=== PATIENT | male | born 1985 | race Hispanic/Latino ===

== ENCOUNTER 2019-03-14 13:30 | Inpatient (IN) | payer BC ==
[2019-03-14 16:06] LABS: Hemoglobin 6.7 g/dL (14.0-18.0); Mean Corpuscular HGB CONC 35.6 g/dL (32.0-36.0); Mean Corpuscular Hemoglobin 31.7 pg (27.0-31.0); Mean Corpuscular Volume 89.1 fL (78.0-98.0); Platelet Count 161 thou/uL (130-400); RBC Distribution Width 18.8 % (11.5-14.5); White Blood Cell (WBC) Count 4.7 thou/uL (4.8-10.8)
[2019-03-14 16:23] LABS: ALT (SGPT) 29 U/L (8-55); AST (SGOT) 59 U/L (5-34); Albumin 4.8 g/dL (3.5-5.0); Alkaline Phosphatase 63 U/L (40-150); Anion Gap 13 mmol/L (10-20); BUN (Urea Nitrogen) 12 mg/dL (8.9-20.6); Bilirubin, Total 2.5 mg/dL (0.2-1.2); Calc. Creatinine Clearance 0 mL/min (70-130); Calcium 9.8 mg/dL (7.8-10.44); Carbon Dioxide 27 mmol/L (22-29); Chloride 103 mmol/L (98-107); Estimated GFR-MDRD Greater than 90; Globulin 3.2 g/dL (2.4-3.5); Glucose 87 mg/dL (70-105); Potassium 3.8 mmol/L (3.5-5.1); Sodium 139 mmol/L (136-145)
[2019-03-14 16:33] LABS: Anisocytosis SLIGHT = 6-15 cells (100X) (0-5/hpf); Band 9 % (5-11); Elliptocytes SLIGHT = 2-5 cells (100X) (0-1/hpf); Eosinophils 5 % (0-10); Lymphocytes 13 % (21-51); MDiff Complete? YES; Monocytes 4 % (0-10); Neutrophil 69 % (42-75); Nucleated RBC 5 % (0); Platelet Morphology Comment Appears Adequate; Polychromasia MODERATE = 3-4 cells (100X) (0-2/hpf); Tear Drops SLIGHT = 2-5 cells (100X) (0-1/hpf)
[2019-03-14] MEDS ORDERED: Ondansetron PF 4 MG/2 ML Vial IVP PRN (20:58)
[2019-03-14] MEDS ORDERED: Acetaminophen 650 MG Suppository PR PRN (20:58)
[2019-03-14] MEDS ORDERED: Acetaminophen 325 MG TAB PO PRN (20:58)
[2019-03-14] MEDS ORDERED: Ondansetron ODT 4 MG TAB PO PRN (20:58)
[2019-03-14] MEDS ORDERED: Sodium Chloride 0.9% (PF) 10 ML VIAL FS PRN (21:17)
[2019-03-14 21:34] LABS: Hemoglobin 5.7 g/dL (14.0-18.0); Platelet Count 119 thou/uL (130-400)
[2019-03-14 21:37] LABS: INR-International Normal Ratio 1.1; PTT 27.7 SEC (22.9-36.1)
[2019-03-14 21:54] LABS: Bilirubin, Direct 0.8 mg/dL (0.1-0.3)
[2019-03-14] MEDS: Sodium Chloride 0.9% 1,000 ML IV SCH (21:54)
--- NOTE | 2019-03-15 | ULT ---
RIGHT UPPER QUADRANT ULTRASOUND CLINICAL HISTORY: Elevated bilirubin anemia. COMPARISON: None FINDINGS: Liver:There is diffuse fatty infiltration of the liver Bile ducts: No intrahepatic or extrahepatic biliary dilation.; common bile duct: 0.24cm. Gallbladder: Normal appearing. Macias's sign:None Main portal vein:Patent with hepatopedal flow. Pancreas: Visualized pancreas appears normal. Right kidney: No pelvicalyceal dilatation. Right kidney measures 12.1 x 4.7 cm. Additional findings: None. IMPRESSION: Mild fatty liver.
[2019-03-15 00:35] LABS: Hemoglobin 5.8 g/dL (14.0-18.0)
[2019-03-15 00:38] LABS: D-Dimer Test 1.16 *mcg/mL (0.27-0.43)
[2019-03-15 05:23] LABS: Hemoglobin 5.5 g/dL (14.0-18.0); Mean Corpuscular HGB CONC 35.1 g/dL (32.0-36.0); Mean Corpuscular Hemoglobin 31.3 pg (27.0-31.0); Mean Corpuscular Volume 89.2 fL (78.0-98.0); Mean Platelet Volume 6.7 fL (7.4-10.4); Platelet Count 116 thou/uL (130-400); Red Blood Cell (RBC) Count 1.75 mill/uL (4.70-6.10)
--- NOTE | 2019-03-15 05:23 | HP ---
This is DAVID Griffin dictating a report for Venkata Wallace MD. PRIMARY CARE PHYSICIAN: Dr. Judith Ansari. CHIEF COMPLAINT: Shortness of breath and lightheadedness. HISTORY OF PRESENT ILLNESS: Mr. King is a pleasant 33-year-old gentleman with no past medical history, who states he was doing well until Tuesday when he began feeling generally unwell and lightheaded. He started to note that he was fatigued and became increasingly short of breath. He contacted his primary care physician who recommended laboratory studies to be done earlier today. Due to results demonstrating a low hemoglobin of 6.7, he was instructed to present to the emergency department. The patient denies noting any bright red blood in the stool or melena. He denies having any abdominal pain or cramping, but does report mild left lateral chest wall discomfort with certain movements and is unsure when that started. The patient states it is tolerable. He reports being under lot of stress a few days ago at work. Denies experiencing any chest pain, but has been experiencing palpitations. He denies any hematuria or dysuria. He did notice darkening of his urine several days ago, which he attributed to a multivitamin, the urine improved once he discontinued that. His boyfriend states he appears to have lost some weight. However, the patient states he checks his weight frequently and though, he feels his abdomen has reduced in girth and his weight is actually stable. Denies having any other complaints. PAST MEDICAL HISTORY: None. PAST SURGICAL HISTORY: None. SOCIAL HISTORY: The patient drinks alcohol socially. Denies any drug use or tobacco use. ALLERGIES: NO KNOWN DRUG ALLERGIES. CURRENT MEDICATIONS: None. PHYSICAL EXAMINATION: GENERAL: The patient appears well developed, well nourished, in no acute distress. VITAL SIGNS: Temperature 98.8, pulse is 101, respirations 18, blood pressure 144/87, O2 saturation 99% on room air. HEENT: Normocephalic, atraumatic. Pupils are equal, round, reactive to light. Sclerae are notable for slight icterus. Oropharynx is clear. NECK: Supple. Full range of motion. No lymphadenopathy. LUNGS: Clear to auscultation bilaterally without any wheezing, rales, or rhonchi. CARDIAC: Regular rate and rhythm. ABDOMEN: Soft, nontender, nondistended, normoactive bowel sounds present. No guarding or rigidity. No renal angle tenderness. EXTREMITIES: Without any lower leg swelling or edema. NEUROLOGIC: Alert and oriented x3. SKIN: Without rash or notable jaundice. LABORATORY DATA: Full blood count notable for white cell count of 4.7, hemoglobin 6.7, hematocrit 18.7, MCV 89.1, platelets 161, neutrophil count 69. Sodium 139, potassium 3.8, BUN 12, creatinine 0.74, GFR greater than 90. Total bilirubin elevated at 2.5. AST 69, ALT 29, alkaline phosphatase 63. Lipase normal at 19. Total protein of 8 and albumin of 4.8. IMAGING DATA: None. IMPRESSION AND PLAN: Mr. King is a pleasant 33-year-old, who has been referred for management of the followin. Symptomatic anemia with shortness of breath . The patient is slightly tachycardic. In the emergency department, he has received IV hydration. Orders were placed for transfusion with 2 units of packed red blood cells. The patient denies ever undergoing any transfusion, however, he was noted to have . We will continue IV fluids and monitor blood pressure. We will check orthostatic blood pressures given the fact that he is feeling dizzy. We will monitor H and H. Hemoccult was negative as the patient has no source for possible bleed. Consult has been placed with Dr. Mcmillan given concern for hemolytic anemia. We will also obtain a baseline chest x-ray. 2. Elevated LFTs. The patient denies any underlying liver disease, however it appears he has undergone hepatitis workup in the past which is negative. Bilirubin is elevated at 2.8. I will add on a direct bilirubin as well as coagulation studies. I have requested an abdominal ultrasound. 3. GI prophylaxis. We will start the patient on prophylactic Protonix 40 mg daily. 4. Deep vein thrombosis prophylaxis with mechanical SCDs. 5. Code status, full. His surrogate decision maker is his boyfriend, Sarah Quintero, and his cousin, Nohelia Hook. The patient's case was discussed with Dr. Wallace who agrees with the plan of care as described above. Job ID: [id number]
[2019-03-15 05:34] LABS: Anion Gap 13 mmol/L (10-20); BUN (Urea Nitrogen) 11 mg/dL (8.9-20.6); Calc. Creatinine Clearance 198 mL/min (70-130); Calcium 8.5 mg/dL (7.8-10.44); Carbon Dioxide 23 mmol/L (22-29); Chloride 106 mmol/L (98-107); Estimated GFR-MDRD Greater than 90; Glucose 94 mg/dL (70-105); Potassium 3.9 mmol/L (3.5-5.1); Sodium 138 mmol/L (136-145)
[2019-03-15 05:40] LABS: ALT (SGPT) 23 U/L (8-55); AST (SGOT) 51 U/L (5-34); Albumin 4.2 g/dL (3.5-5.0); Alkaline Phosphatase 53 U/L (40-150); Bilirubin, Direct 0.8 mg/dL (0.1-0.3); Protein, Total 6.8 g/dL (6.0-8.3)
[2019-03-15 05:48] LABS: #Eosinphils 0.1 thou/uL (0.0-0.7); #Lymphocytes 0.9 thou/uL (1.20-3.40); #Monocytes 0.2 thou/uL (0.11-0.59); #Neutrophils 2.8 thou/uL (1.40-6.50); %Basophils 0.5 % (0.0-1.0); %Eosinophils 3.1 % (0.0-10.0); %Lymphocytes 21.3 % (21.0-51.0); %Neutrophils 69.1 % (42.0-75.0); Anisocytosis SLIGHT = 6-15 cells (100X) (0-5/hpf); MDiff Complete? YES; Platelet Morphology Comment Appears Decreased; Polychromasia MARKED = >4 cells (100X) (0-2/hpf)
[2019-03-15] MEDS: Sodium Chloride 0.9% 1,000 ML IV SCH ×2 (07:19→17:24)
--- NOTE | 2019-03-15 07:57 | RAD ---
EXAM: Two views chest PROVIDED CLINICAL HISTORY: Shortness of breath COMPARISON: None FINDINGS: Cardiac silhouette and pulmonary vasculature are within normal limits. The lungs are clear. The osse ous structures have a normal appearance. IMPRESSION: No acute cardiopulmonary process.
[2019-03-15] MEDS: Pantoprazole 40 MG VIAL IVP SCH (08:20)
[2019-03-15 10:52] LABS: Hemoglobin 6.1 g/dL (14.0-18.0); Mean Corpuscular HGB CONC 35.6 g/dL (32.0-36.0); Mean Corpuscular Hemoglobin 31.8 pg (27.0-31.0); Mean Corpuscular Volume 89.3 fL (78.0-98.0); Mean Platelet Volume 6.7 fL (7.4-10.4); Platelet Count 141 thou/uL (130-400); RBC Distribution Width 18.8 % (11.5-14.5); Red Blood Cell (RBC) Count 1.91 mill/uL (4.70-6.10); Reticulocyte Count 17.3 % (0.5-1.5); White Blood Cell (WBC) Count 4.1 thou/uL (4.8-10.8)
[2019-03-15] MEDS ORDERED: methylPREDNISolone Sod Succ 40 MG VIAL IVP SCH (11:00)
[2019-03-15 11:04] LABS: Iron 167 ug/dL (65-175); Iron Binding Capacity, Total 276 mcg/dL (261-462)
[2019-03-15 11:38] LABS: Anisocytosis MODERATE=16-30 cells (100X) (0-5/hpf); Band 7 % (5-11); Eosinophils 1 % (0-10); Hypochromia SLIGHT = 6-15 cells (100X) (0-5/hpf); Lymphocytes 17 % (21-51); MDiff Complete? YES; Metamyelocyte 2 % (0-0); Monocytes 4 % (0-10); Neutrophil 68 % (42-75); Nucleated RBC 5 % (0); Ovalocytes SLIGHT = 2-5 cells (100X) (0-1/hpf); Polychromasia MARKED = >4 cells (100X) (0-2/hpf)
[2019-03-15 11:38] LABS: Folate (Folic Acid) 14.9 ng/mL (7.0-31.4)
--- NOTE | 2019-03-15 15:55 | CON ---
DATE OF CONSULTATION: REASON FOR CONSULT: Severe anemia. HISTORY OF PRESENT ILLNESS: Mr. Christine Booker is a pleasant 33-year-old gentleman with no significant medical history, who states for the past week, he has had increasing fatigue, dizziness, and palpitations. He called his primary care on Tuesday to schedule an appointment. She scheduled labs prior to the visit and found a hemoglobin of 5.8. He was sent to the emergency room yesterday evening. He denies any bleeding. In the emergency room, his white count was 4.7, his hemoglobin was 6.7, and his platelet count was 161,000. He did have 5 nucleated reds. Two orders of packed RBCs were ordered. On the blood test, he had a positive direct antiglobulin screen and was unable to receive any blood. He underwent an abdominal ultrasound, which showed no hepatosplenomegaly. The patient denies any new medications. He took an [id number] multivitamin for approximately 1 month and stopped about a week ago. Denies any family history of blood disorders. No illicit drug use. No recent antibiotics. PAST MEDICAL HISTORY: None. PAST SURGICAL HISTORY: None. ALLERGIES: NO KNOWN DRUG ALLERGIES. HOME MEDICATIONS: None. FAMILY HISTORY: No hematological disorders. SOCIAL HISTORY: Single, lives with a significant other. No illicit drug use or tobacco. Social drinker. REVIEW OF SYSTEMS: CONSTITUTIONAL: No fever, chills, night sweats, or recent weight loss. EYES: No blurred or double vision. ENT: No pain, hoarseness, sore throat, or dysphagia. CV: No chest pain. Positive for palpitations. RESPIRATORY: Positive for shortness of breath and dyspnea on exertion. GI: No nausea, vomiting, diarrhea, constipation, or abdominal pain. : No dysuria or hematuria. MUSCULOSKELETAL: No joint or back pain. SKIN: No rash or pruritus. HEMATOLOGICAL: No bleeding, bruising, or clotting. NEUROLOGICAL: No weakness, headache, numbness, tingling, or seizure disorder. PSYCH: No anxiety or depression. PHYSICAL EXAMINATION: VITAL SIGNS: Temperature is 98.5, pulse is 88, respiratory rate is 16, BP is 124/74. He is 100% on room air. GENERAL: This is a well-developed, well-nourished male, in no acute distress. HEENT: Normocephalic and atraumatic. Pupils are equal and reactive to light. Sclerae are icteric. CV: Regular rate and rhythm. LUNGS: Clear. ABDOMEN: Soft and nontender. Bowel sounds are positive. EXTREMITIES: No clubbing, cyanosis, or edema. SKIN: Positive for jaundice. HEMATOLOGICAL: No petechiae or purpura. NEUROLOGICAL: Nonfocal. PSYCH: He is alert and oriented and appropriate. PERTINENT LABS AND X-RAYS: Current WBCs are 4.1, hemoglobin is 6.1, hematocrit is 17.0, platelet count is 141,000. He has 69% neutrophils, 21% lymphocytes. He has a retic count of 17.3. His smear is pending. PT is 14, INR is 1.1, PTT is 27.7, fibrinogen is 370, D-dimer is 1.16. Sodium is 138, potassium is 3.9, chloride is 106, CO2 is 23, BUN is 11, creatinine is 0.7, calcium is 8.5, bilirubin is 3.0, direct bilirubin is 0.8, AST is 51, ALT is 23, alkaline phosphatase is 53. Serum total protein is 6.8, albumin is 4.2, globulin is 3.2, lipase is 19. Abdominal ultrasound and chest x-ray shows no acute findings. ASSESSMENT: Severe symptomatic anemia. DISCUSSION: Case was discussed with Dr. Raymond. The patient appears to have a hemolytic anemia, trigger unclear at this time. Peripheral smear is currently pending, looking for schistocytes and spherocytes. It is unlikely he has TTP given his normal platelet count this morning. His LDH and haptoglobin are currently pending. Plan is to start steroids at 1 mg/kg, and we will transfuse once his blood is available. The patient and family were updated on the plan and agrees. Thank you for the consult. We will follow him closely. Job ID: [id number]
--- NOTE | 2019-03-15 18:08 | PDOC.HOSPP ---
- Subjective Encounter Date: 03/15/19 Encounter Time: 18:06 Subjective: Patient lying in bed, he denies events over night. His Hgb improved a little to 6.1. He states he gets out of breath walking to the bathroom and feels weak. He denies chest pain or palpitations. He continues on prednisone for acute autoimmune hemolytic anemia. - Objective Vital Signs & Weight: Vital Signs (12 hours) Temp Pulse Resp BP BP BP BP 03/15/19 16:07 98.2 F 109 H 16 133/76 03/15/19 11:58 98.4 F 99 18 116/69 119/69 113/62 03/15/19 08:17 98.5 F 88 16 124/79 Pulse Ox 03/15/19 16:07 98 03/15/19 11:58 100 03/15/19 08:17 100 Weight Admit Weight 203 lb 11.2 oz Weight 203 lb 11.2 oz I&O: 03/14/19 03/15/19 03/16/19 06:59 06:59 06:59 Intake Total 1919 Balance 1919 Result Diagrams: 03/15/19 10:26 03/15/19 04:58 Radiology Reviewed by me: Yes ROS - Review of Systems Constitutional: reports: weakness, malaise. denies: fever, chills Eyes: denies: vision change ENT: denies: nose congestion, throat pain, throat swelling Respiratory: reports: SOB with excertion. denies: cough, wheezing Cardiovascular: denies: chest pain, palpitations Gastrointestinal: denies: nausea, vomitting, abdominal pain Musculoskeletal: denies: neck pain, back pain, leg pain Skin: denies: rash, lesions Neurological: reports: weakness. denies: numbness, change in speech, confusion All other systems reviewed; all pertinent +/- noted in HPI/Subj - Medication Medications: Active Medications Generic Name Dose Route Start Last Admin Trade Name Freq PRN Reason Stop Dose Admin Sodium Chloride 1,000 mls @ 100 mls/hr 03/14/19 21:15 03/15/19 17:24 Normal Saline 0.9% IV 1,000 mls .Q10H ABELINO Administration Pantoprazole Sodium 40 mg 03/15/19 09:00 03/15/19 08:20 Protonix IVP 40 mg DAILY ABELINO Administration Sodium Chloride 10 ml 03/15/19 09:00 03/15/19 08:20 Flush - Normal Saline IVF 10 ml Q12HR ABELINO Administration - Exam NAD, awake alert Eye: PERRL ENT: normocephalic atraumatic, no oropharyngeal lesions, moist mucosa Neck: supple, no JVD, no carotid bruit Heart: RRR, no murmur Respiratory: CTAB, no wheezes, normal chest expansion Gastrointestinal: soft, non-tender, normal bowel sounds Extremities: no cyanosis, no edema Skin: normal turgor, no rashes Neurological: CN's grossly intact, no focal deficits Musculoskeletal: normal strength, no muscle wasting Psychiatric: normal affect, A&O x 3 Hosp A/P (1) Autoimmune hemolytic anemia Code(s): D59.1 - OTHER AUTOIMMUNE HEMOLYTIC ANEMIAS Status: Acute (2) Symptomatic anemia Code(s): D64.9 - ANEMIA, UNSPECIFIED Status: Acute (3) Elevated LFTs Code(s): R94.5 - ABNORMAL RESULTS OF LIVER FUNCTION STUDIES Status: Acute - Plan plan discussed w/ family Continue steroids Patient with autoimmune hemolytic anemia Trend H&H, recheck CBC in am Heme/onc following GI consulted for elevated LFT
[2019-03-15 19:29] LABS: HBCM Index 0.14 S/CO (0-0.79); HBSAg Index 0.19 S/CO (0-0.99); HIV (1/2) Antibody/Antigen Non-Reactive (NonReactive); Hep A IgM AB Non-Reactive (NonReactive); Hep A IgM S/CO 0.17 S/CO (0-0.79); Hep B Surf Ag Non-Reactive S/CO (NonReactive); Hep C IgG Ab Non-Reactive (NonReactive); Hep C Index 0.11 S/CO (0-0.79); Hepatitis B Core IgM Abs Non-Reactive (NonReactive)
[2019-03-15] MEDS: predniSONE 50 MG TAB PO SCH (21:50)
--- NOTE | 2019-03-16 01:33 | CON ---
DATE OF CONSULTATION: REASON FOR CONSULTATION: Anemia, mild elevation of LFTs. HISTORY OF PRESENT ILLNESS: Mr. King is a 33-year-old gentleman. He reports that he went to his doctor's office on Tuesday as he was feeling very weak and lightheaded. He was found to have a hemoglobin between 5 and 6. His PCP called him and told him he needed to get to the emergency room. Here, he was found to have mildly elevated liver enzymes. Again, he has been evaluated by Hematology, who thinks he is having hemolytic anemia. In talking with the patient, he denies any prior histories of anemia. He denies any signs of overt blood loss with melena, hematochezia, or hematemesis. His appetite is good. In fact, he wants to eat now. He has been kept on liquids so far since admission. He has had no weight loss. He has had no fever or chills. He denies any sick contacts. He denies taking any supplements other than a multivitamin and occasional baby aspirin and occasional ibuprofen, probably less than 10 a month. He drinks alcohol about four times per month. He does not use drugs. He does not take any supplements. He works in the kitchen at [employer]. He denies any sick contacts there. PAST MEDICAL HISTORY: He has been healthy with no chronic medical disease. 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 He can have chronic features of arthritis but unaware of that. PAST SURGICAL HISTORY: None. ALLERGIES: NONE. MEDICATIONS: At home, only the aspirin occasionally. He took one iron pill two days ago, when he was told he was anemic and he had been taking occasional NSAID but nothing regular. FAMILY HISTORY: No hematology disorders, colon cancer, or liver disease. SOCIAL HISTORY: He lives with significant other. No illicit drug use. No tobacco use. REVIEW OF SYSTEMS: CONSTITUTIONAL: Negative for fever, chills, rashes, myalgias, arthralgias, or night sweats. EYES: No double vision or blurry vision noted. No icterus or jaundice was noted. HENT: No sore throat or hoarseness or adenopathy in the neck or thyroid masses. CVS: He has had dyspnea on exertion and shortness of breath on exertion but no chest pain. No orthopnea. RESPIRATORY: Negative for cough. GI: As per HPI. NEUROLOGIC: Negative. SKIN: Negative. PRESENT MEDICATIONS: 1. Tylenol. 2. Zofran. 3. Protonix. 4. Prednisone. 5. Normal saline. PHYSICAL EXAMINATION: VITAL SIGNS: Temperature is 98.2, pulse 91 to 109, and blood pressure 133/76. GENERAL: He is resting comfortably in bed. HEENT: He is not grossly icteric. His oropharynx is without lesions. NECK: Supple without any adenopathy. There is no thyromegaly. LUNGS: Clear. HEART: Regular rate and rhythm without clicks, rubs, or murmurs. ABDOMEN: Soft and nontender with no palpable hepatosplenomegaly. EXTREMITIES: No clubbing, cyanosis, or edema. SKIN: Without stigmata of chronic liver disease such as spider angioma. NEUROLOGIC: He is alert and oriented to person, place, and time. LYMPHATICS: He has no evidence of adenopathy in the axillary or inguinal areas or supraclavicular adenopathy. LABORATORY DATA: White count is 4.1, hemoglobin 6.1, platelet count 141 as low as 119, his MCV is 89, 69 segs, 9 bands, 13 lymphocytes, nucleated red blood cells 5, polychromia moderate, retic 17%. PT and INR are 14 and 1.1. Comp met profile is normal except for bilirubin of 2.5 on admission, it is 3 today with direct of 0.8. AST is 51, ALT is 23, alkaline phosphatase 53, LDH is 889, iron is 167, TIBC is 276, saturation 60%, ferritin 774, B12 of 351, and folate 14. Acute hepatitis panel negative. HIV negative. Labs from 09/29/2017, he had a normal CBC, had normal liver function tests at that time as well. IMAGING STUDIES: He has had a chest x-ray, was normal. Ultrasound, mild fatty liver. ASSESSMENT: 1. This is a 33-year-old, who has been admitted with anemia, which is new from last year and he has some mild indirect hyperbilirubinemia and mild AST elevation. He has no signs of GI blood loss or GI symptoms. He has no evidence of iron deficiency. Hematology has seen him and with his elevated LDH and peripheral smear, I think he has some myolysis and had been started on steroids. At this time, I see no signs of GI blood loss. 2. Elevated liver enzymes. He does have a mild fatty liver on ultrasound. There are no signs of cirrhosis. He has a mild indirect hyperbilirubinemia and a mild AST elevation, both of these could be related to hemolysis. It is always possible that he has a component of Gilbert syndrome. I do not see any specific severe underlying liver disease. I would observe for now. We will follow from a distance. Job ID: [id number]
[2019-03-16] MEDS: Sodium Chloride 0.9% 1,000 ML IV SCH ×2 (06:41→16:10)
[2019-03-16 07:18] LABS: Hemoglobin 5.9 g/dL (14.0-18.0); Mean Corpuscular HGB CONC 35.9 g/dL (32.0-36.0); Mean Corpuscular Hemoglobin 32.4 pg (27.0-31.0); Mean Corpuscular Volume 90.3 fL (78.0-98.0); Mean Platelet Volume 6.9 fL (7.4-10.4); Platelet Count 160 thou/uL (130-400); RBC Distribution Width 19.8 % (11.5-14.5); Red Blood Cell (RBC) Count 1.82 mill/uL (4.70-6.10); White Blood Cell (WBC) Count 8.4 thou/uL (4.8-10.8)
[2019-03-16 08:00] LABS: #Basophils 0.1 thou/uL (0.0-0.2); #Monocytes 0.2 thou/uL (0.11-0.59); #Neutrophils 7.1 thou/uL (1.40-6.50); %Basophils 1.6 % (0.0-1.0); %Eosinophils 0.3 % (0.0-10.0); %Lymphocytes 11.8 % (21.0-51.0); %Monocytes 1.7 % (0.0-10.0); %Neutrophils 84.5 % (42.0-75.0); Anisocytosis MODERATE=16-30 cells (100X) (0-5/hpf); MDiff Complete? YES; Platelet Morphology Comment Appears Adequate; Polychromasia MARKED = >4 cells (100X) (0-2/hpf); Spherocytes SLIGHT = 1-5 cells (100X) (None Seen)
[2019-03-16] MEDS: Pantoprazole 40 MG VIAL IVP SCH (08:25)
[2019-03-16] MEDS: predniSONE 50 MG TAB PO SCH ×2 (08:25→21:15)
--- NOTE | 2019-03-16 08:51 | PDOC.MOPN ---
Interval History: Pt feeling better today since starting steroids yesterday. His appetite is good and energy is slightly better. - Vital Signs Vital Signs: Vital Signs (12 hours) Temp Pulse Resp BP Pulse Ox 03/16/19 08:22 98.4 F 100 18 137/69 100 03/16/19 03:57 98.4 F 95 17 113/61 98 Weight Admit Weight 203 lb 11.2 oz Weight 203 lb 11.2 oz - Physical Exam General: Alert, Oriented x3, Cooperative, No acute distress HEENT: Atraumatic, EOMI Lungs: Normal air movement Cardiovascular: Regular rate Abdomen: Soft Skin: No rashes Neurological: Cranial nerves 3-12 NL Psych/Mental Status: Mental status NL, Mood NL - Labs Result Diagrams: 03/16/19 06:58 03/15/19 04:58 Lab results: Laboratory Results - last 24 hr 03/16/19 06:58: WBC 8.4, RBC 1.82 L, Hgb 5.9 L*, Hct 16.5 L, MCV 90.3, MCH 32.4 H, MCHC 35.9, RDW 19.8 H, Plt Count 160, MPV 6.9 L, Neutrophils % 84.5 H, Neutrophils % (Manual) Not Reportable, Lymphocytes % 11.8 L, Monocytes % 1.7, Eosinophils % 0.3, Basophils % 1.6 H, Neutrophils # 7.1 H, Lymphocytes # 1.0 L, Monocytes # 0.2, Eosinophils # 0.0, Basophils # 0.1, Plt Morphology Comment Appears Adequate, Polychromasia MARKED = >4 cells H, Anisocytosis MODERATE=16- 30 cells H, Spherocytes SLIGHT = 1-5 cells 03/15/19 18:44: Hepatitis A IgM Ab Non-Reactive, Hep Bs Antigen Non-Reactive, Hep B Core IgM Ab Non-Reactive, Hepatitis C Antibody Non-Reactive, HIV 1&2 Antigen & Ab Non-Reactive 03/15/19 10:26: WBC 4.1 L, RBC 1.91 L, Hgb 6.1 L, Hct 17.0 L, MCV 89.3, MCH 31.8 H, MCHC 35.6, RDW 18.8 H, Plt Count 141, MPV 6.7 L, Neutrophils % (Manual) 68, Band Neuts % (Manual) 7, Lymphocytes % (Manual) 17 L, Monocytes % (Manual) 4 , Eosinophils % (Manual) 1, Basophils % (Manual) 1, Metamyelocytes % (Man) 2 H, Nucleated RBCs # (Man) 5 H, Hypochromia SLIGHT = 6-15 cells, Polychromasia MARKED = >4 cells H, Anisocytosis MODERATE=16-30 cells H, Ovalocytes SLIGHT = 2- 5 cells, Smear Path Review 03/15/19 10:26: Retic Count 17.3 H, Immature Retic Fraction 0.757 H 03/15/19 10:26: Iron 167, TIBC 276, % Saturation 60 H 03/15/19 10:25: Lactate Dehydrogenase 889 H 03/15/19 10:25: Ferritin 774.14 H 03/15/19 10:25: Vitamin B12 531, Folate 14.90 03/14/19 16:23: Blood Type A POSITIVE, Antibody Screen POSITIVE H, Antibody Identification Warm Auto, Direct Antiglob Test POSITIVE H, Crossmatch See Detail A/P - Problem (1) Autoimmune hemolytic anemia Current Visit: Yes Code(s): D59.1 - OTHER AUTOIMMUNE HEMOLYTIC ANEMIAS Status: Acute - Plan Plan: Warm AIHA continue Prednisone 1 mg/kg daily and Protonix avoid blood transfusion at this time as pt is feeling better and his antibodies would likely destroy any blood given to him. Would give to him if his Hb drops and he becomes more symptomatic Will be ok for discharge once Hb > 7.[address]-C/A/P to evaluate for any evidence of lymphoma as no other cause has been found f/u flow cytometry
--- NOTE | 2019-03-16 17:14 | PDOC.HOSPP ---
- Subjective Encounter Date: 03/16/19 Encounter Time: 17:11 Subjective: Patient seen and examined for Anemia. No SOB. No new complaints. No overnight events - Objective Vital Signs & Weight: Vital Signs (12 hours) Temp Pulse Resp BP Pulse Ox 03/16/19 16:08 98.5 F 102 H 18 120/58 L 99 03/16/19 12:29 98.5 F 98 16 128/68 99 03/16/19 08:22 98.4 F 100 18 137/69 100 Weight Admit Weight 203 lb 11.2 oz Weight 203 lb 11.2 oz I&O: 03/15/19 03/16/19 03/17/19 06:59 06:59 06:59 Intake Total 3520 Balance 3520 Result Diagrams: 03/16/19 06:58 03/15/19 04:58 EKG Reviewed by me: Yes (Tele SR) ROS - Review of Systems Respiratory: denies: cough, dry, shortness of breath, hemoptysis, SOB with excertion, pleuritic pain, sputum, wheezing, other Cardiovascular: denies: chest pain, palpitations, orthopnea, paroxysmal noc. dyspnea, edema, light headedness, other - Medication Medications: Active Medications Generic Name Dose Route Start Last Admin Trade Name Freq PRN Reason Stop Dose Admin Pantoprazole Sodium 40 mg 03/15/19 09:00 03/16/19 08:25 Protonix IVP 40 mg DAILY ABELINO Administration Prednisone 50 mg 03/15/19 21:00 03/16/19 08:25 Prednisone PO 50 mg BID ABELINO Administration Sodium Chloride 10 ml 03/15/19 09:00 03/16/19 08:25 Flush - Normal Saline IVF 10 ml Q12HR ABELINO Administration - Exam NAD Neck: supple, no JVD Heart: RRR, no gallops Respiratory: CTAB, no rales Gastrointestinal: soft, non-tender, normal bowel sounds Extremities: no edema Hosp A/P (1) Autoimmune hemolytic anemia Code(s): D59.1 - OTHER AUTOIMMUNE HEMOLYTIC ANEMIAS Status: Acute (2) Symptomatic anemia Code(s): D64.9 - ANEMIA, UNSPECIFIED Status: Acute (3) Elevated LFTs Code(s): R94.5 - ABNORMAL RESULTS OF LIVER FUNCTION STUDIES Status: Acute (4) Pancytopenia Code(s): D61.818 - OTHER PANCYTOPENIA Status: Acute - Plan Cont Prednisone Cont PPI AM labs Ambulate DC IVF
[2019-03-17 05:21] LABS: Hemoglobin 5.4 g/dL (14.0-18.0); Mean Corpuscular Hemoglobin 30.3 pg (27.0-31.0); Red Blood Cell (RBC) Count 1.76 mill/uL (4.70-6.10); White Blood Cell (WBC) Count 8.2 thou/uL (4.8-10.8)
[2019-03-17 05:30] LABS: Band 10 % (5-11); Eosinophils 1 % (0-10); Hypochromia SLIGHT = 6-15 cells (100X) (0-5/hpf); Lymphocytes 14 % (21-51); MDiff Complete? YES; Mean Corpuscular HGB CONC 32.6 g/dL (32.0-36.0); Mean Platelet Volume 6.8 fL (7.4-10.4); Monocytes 2 % (0-10); Neutrophil 73 % (42-75); Nucleated RBC 4 % (0); Platelet Count 159 thou/uL (130-400); Platelet Morphology Comment Appears Adequate; Polychromasia SLIGHT = 2-3 cells (100X) (0-2/hpf); RBC Distribution Width 22.1 % (11.5-14.5)
[2019-03-17 05:39] LABS: ALT (SGPT) 26 U/L (8-55); AST (SGOT) 42 U/L (5-34); Albumin 4.5 g/dL (3.5-5.0); Alkaline Phosphatase 53 U/L (40-150); Anion Gap 15 mmol/L (10-20); BUN (Urea Nitrogen) 11 mg/dL (8.9-20.6); Bilirubin, Total 2.3 mg/dL (0.2-1.2); Calc. Creatinine Clearance 190 mL/min (70-130); Calcium 9.4 mg/dL (7.8-10.44); Carbon Dioxide 24 mmol/L (22-29); Chloride 106 mmol/L (98-107); Estimated GFR-MDRD Greater than 90; Globulin 2.8 g/dL (2.4-3.5); Glucose 128 mg/dL (70-105); Potassium 4.6 mmol/L (3.5-5.1); Protein, Total 7.3 g/dL (6.0-8.3); Sodium 140 mmol/L (136-145)
[2019-03-17] MEDS: Pantoprazole 40 MG VIAL IVP SCH (10:26)
[2019-03-17] MEDS: predniSONE 50 MG TAB PO SCH ×2 (10:27→19:05)
[2019-03-17] MEDS ORDERED: ISOVUE-370 76%-LOCM 1 ML ONE (11:13)
--- NOTE | 2019-03-17 13:59 | CT ---
CHEST CT WITH CONTRAST ABDOMEN CT WITH CONTRAST PELVIC CT WITH CONTRAST: HISTORY: Hemolytic anemia. Evaluate for lymphoma. COMPARISON: None. FINDINGS: CHEST CT: No mediastinal mass, lymphadenopathy, or hematoma. Heart size is within normal limits. No pericardi al fluid. The thoracic aorta and abdominal aorta have a normal caliber. No periaortic fat stranding . Trachea and central bronchi are patent. Calcified subcarinal lymph node. There is no pleural effusion. No evidence of a mass or consolidation in the left or right lung. No pneumothorax. ABDOMEN CT: Portal vein is patent. Gallbladder is unremarkable. Appropriate enhancement of the solid organs. No gastrohepatic, retrocrural, or periportal lymphadenopathy. Symmetric enhancement of the kidneys. No obstructive uropathy. No mesenteric mass, lymphadenopathy, free air, or free fluid. Linear density anterior to the 3rd/4th portion of the duodenum measures 3.1 cm mediolateral x 0.4 cm anterior posterior x 1.1 cm craniocaud al. Nonspecific lymph node may be present. Gastric mucosa, duodenum, and multiple normal-caliber small bowel loops are identified. No evidence of bowel obstruction. Ileocecal junction is unremarkable. Normal-caliber appendix. Contrast and sc attered fecal material in a nondistended, nondilated colon. There are a few scattered nonspecific, n onenlarged aortocaval and periaortic lymph nodes. PELVIC CT: No mass, lymphadenopathy, free air, or free fluid. There is no evidence of an inguinal or external/i nternal iliac lymph node. OSSEOUS STRUCTURES: There are no lytic or blastic lesions in the osseous structures. IMPRESSION: No evidence of definite lymphadenopathy in the chest, abdomen, and pelvis. Incidental findings as de scribed above. POS: OFF
--- NOTE | 2019-03-17 14:50 | PRG ---
DATE OF SERVICE: 03/17/2019 SUBJECTIVE: Mr. King has had no overt bleeding. 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 He is being worked up and evaluated by Hematology. He is without complaints. OBJECTIVE: VITAL SIGNS: Pulse is 94 to 103, respirations 18, and temperature 98.2. ABDOMEN: Nontender. LABORATORY DATA: Bilirubin is 2.3. This is indirect hyperbilirubinemia related to his hemolysis. AST is 42 and ALT is 26. Again, likely all related to hemolysis. Hepatitis serologies have been negative. CT abdomen, pelvis, and chest was normal except for incidentals. PLAN: At this point, from GI standpoint, I have no further recommendations. The anemia does not seem to be related to GI blood loss. We will defer management to Hematology. Liver abnormalities related to hemolysis. No underlying liver disease is suspected. I will sign off. Please re-contact if I can be of any further assistance. Job ID: [id number]
--- NOTE | 2019-03-17 21:15 | PDOC.HOSPP ---
- Subjective Encounter Date: 03/17/19 Encounter Time: 09:30 Subjective: Patient seen and examined for hemolytic anemia. No CP or SOB. Ambulating in hallways. No new complaints. No overnight events - Objective Vital Signs & Weight: Vital Signs (12 hours) Temp Pulse Resp BP BP Pulse Ox 03/17/19 19:27 98.3 F 113 H 16 124/60 100 03/17/19 15:20 98.1 F 114 H 18 132/71 100 03/17/19 15:00 100 03/17/19 11:12 103 H 16 128/69 100 Weight Admit Weight 203 lb 11.2 oz Weight 203 lb 11.2 oz I&O: 03/16/19 03/17/19 03/18/19 06:59 06:59 06:59 Intake Total 3520 1440 720 Balance 3520 1440 720 Result Diagrams: 03/18/19 03:45 03/17/19 05:06 EKG Reviewed by me: Yes (Tele SR) ROS - Review of Systems Respiratory: denies: cough, dry, shortness of breath, hemoptysis, SOB with excertion, pleuritic pain, sputum, wheezing, other Cardiovascular: denies: chest pain, palpitations, orthopnea, paroxysmal noc. dyspnea, edema, light headedness, other Gastrointestinal: denies: nausea, vomitting, abdominal pain, diarrhea, constipation, melena, hematochezia, other - Medication Medications: Active Medications Generic Name Dose Route Start Last Admin Trade Name Freq PRN Reason Stop Dose Admin Prednisone 50 mg 03/17/19 17:00 03/17/19 19:05 Prednisone PO 50 mg BID-WM ABELINO Administration Sodium Chloride 10 ml 03/15/19 09:00 03/17/19 20:17 Flush - Normal Saline IVF 10 ml Q12HR ABELINO Administration - Exam NAD Heart: RRR, no gallops, no rubs Respiratory: CTAB, no rales, no ronchi Gastrointestinal: soft, non-tender, normal bowel sounds Extremities: no edema Skin: no rashes Hosp A/P (1) Autoimmune hemolytic anemia Code(s): D59.1 - OTHER AUTOIMMUNE HEMOLYTIC ANEMIAS Status: Acute (2) Symptomatic anemia Code(s): D64.9 - ANEMIA, UNSPECIFIED Status: Acute (3) Elevated LFTs Code(s): R94.5 - ABNORMAL RESULTS OF LIVER FUNCTION STUDIES Status: Acute (4) Pancytopenia Code(s): D61.818 - OTHER PANCYTOPENIA Status: Acute - Plan Cont Prednisone 1 mg/kg Cont PPI CT Chest/Abd/Pelvis per Hem-Onc rec SOFY in AM Transfer to [facility]
[2019-03-18 04:04] LABS: Hemoglobin 5.3 g/dL (14.0-18.0); Mean Corpuscular HGB CONC 34.7 g/dL (32.0-36.0); Mean Corpuscular Hemoglobin 32.1 pg (27.0-31.0); Mean Corpuscular Volume 92.6 fL (78.0-98.0); Mean Platelet Volume 6.8 fL (7.4-10.4); Platelet Count 146 thou/uL (130-400); RBC Distribution Width 21.9 % (11.5-14.5); Red Blood Cell (RBC) Count 1.65 mill/uL (4.70-6.10); White Blood Cell (WBC) Count 7.9 thou/uL (4.8-10.8)
[2019-03-18 04:06] LABS: Band 3 % (5-11); Lymphocytes 14 % (21-51); MDiff Complete? YES; Monocytes 6 % (0-10); Myelocyte 1 % (0-0); Neutrophil 76 % (42-75); Nucleated RBC 7 % (0); Platelet Morphology Comment Appears Adequate
--- NOTE | 2019-03-18 08:21 | PDOC.HOSPP ---
- Subjective Encounter Date: 03/18/19 Encounter Time: : Subjective: Patient seen and examined for hemolytic anemia. No SOB. No new complaints. No overnight events - Objective Vital Signs & Weight: Vital Signs (12 hours) Temp Pulse Resp BP BP BP Pulse Ox 03/18/19 03:48 98.2 F 93 12 113/57 L 100 03/17/19 23:55 98.4 F 91 16 94/52 L 98 03/17/19 22:00 113/73 129/72 109/56 L Weight Admit Weight 203 lb 11.2 oz Weight 203 lb 11.2 oz I&O: 03/17/19 03/18/19 03/19/19 06:59 06:59 06:59 Intake Total 1440 720 Balance 1440 720 Result Diagrams: 03/18/19 03:45 03/17/19 05:06 Radiology Reviewed by me: Yes (CT C/A/P - neg) ROS - Review of Systems Respiratory: denies: cough, dry, shortness of breath, hemoptysis, SOB with excertion, pleuritic pain, sputum, wheezing, other Cardiovascular: denies: chest pain, palpitations, orthopnea, paroxysmal noc. dyspnea, edema, light headedness, other - Medication Medications: Active Medications Generic Name Dose Route Start Last Admin Trade Name Freq PRN Reason Stop Dose Admin Prednisone 50 mg 03/17/19 17:00 03/17/19 19:05 Prednisone PO 50 mg BID-WM ABELINO Administration Sodium Chloride 10 ml 03/15/19 09:00 03/17/19 20:17 Flush - Normal Saline IVF 10 ml Q12HR ABELINO Administration - Exam NAD Heart: RRR, no rubs Respiratory: CTAB, no rales Gastrointestinal: soft, non-tender, normal bowel sounds Extremities: no edema Hosp A/P (1) Autoimmune hemolytic anemia Code(s): D59.1 - OTHER AUTOIMMUNE HEMOLYTIC ANEMIAS Status: Acute (2) Symptomatic anemia Code(s): D64.9 - ANEMIA, UNSPECIFIED Status: Acute (3) Elevated LFTs Code(s): R94.5 - ABNORMAL RESULTS OF LIVER FUNCTION STUDIES Status: Acute (4) Pancytopenia Code(s): D61.818 - OTHER PANCYTOPENIA Status: Acute - Plan Cont Prednisone 1 mg/kg Cont PPI Hold transfusion per Hem-Onc rec AM labs
[2019-03-18] MEDS: Folic Acid 1 MG TAB PO SCH (10:23)
[2019-03-18] MEDS: Multivit, Therapeutic 1 TAB PO SCH (10:23)
[2019-03-18] MEDS: Cyanocobalamin (Vitamin B-12) 1,000 MCG TAB PO SCH (10:23)
[2019-03-18] MEDS: predniSONE 50 MG TAB PO SCH ×2 (10:23→18:47)
[2019-03-19 06:31] LABS: Hemoglobin 5.2 g/dL (14.0-18.0); Mean Corpuscular HGB CONC 34.9 g/dL (32.0-36.0); Mean Corpuscular Hemoglobin 31.9 pg (27.0-31.0); Mean Corpuscular Volume 91.3 fL (78.0-98.0); Mean Platelet Volume 6.9 fL (7.4-10.4); Platelet Count 151 thou/uL (130-400); RBC Distribution Width 21.6 % (11.5-14.5); Red Blood Cell (RBC) Count 1.63 mill/uL (4.70-6.10)
[2019-03-19 06:37] LABS: Band 2 % (5-11); Hypochromia MODERATE=16-30 cells (100X) (0-5/hpf); Lymphocytes 19 % (21-51); MDiff Complete? YES; Monocytes 4 % (0-10); Neutrophil 75 % (42-75); Nucleated RBC 8 % (0); Platelet Morphology Comment Appears Adequate; Polychromasia SLIGHT = 2-3 cells (100X) (0-2/hpf)
[2019-03-19 06:47] LABS: ALT (SGPT) 22 U/L (8-55); AST (SGOT) 37 U/L (5-34); Albumin 4.4 g/dL (3.5-5.0); Alkaline Phosphatase 56 U/L (40-150); Bilirubin, Direct 0.9 mg/dL (0.1-0.3); Protein, Total 7.3 g/dL (6.0-8.3)
[2019-03-19] MEDS: Multivit, Therapeutic 1 TAB PO SCH (09:55)
[2019-03-19] MEDS: Cyanocobalamin (Vitamin B-12) 1,000 MCG TAB PO SCH (09:55)
[2019-03-19] MEDS: Folic Acid 1 MG TAB PO SCH (09:55)
[2019-03-19] MEDS: predniSONE 50 MG TAB PO SCH (10:16)
[2019-03-19] MEDS: methylPREDNISolone Sod Succ/PF 125 MG/2 ML VIAL IVP SCH (11:05)
[2019-03-19 12:45] LABS: Ref Lab Test Ordered COLD AGGLUTININ; Reference Lab Name LABCORP
--- NOTE | 2019-03-19 13:57 | PDOC.MOPN ---
Interval History: No complaints. - Vital Signs Vital Signs: Vital Signs (12 hours) Temp Pulse Resp BP BP Pulse Ox 03/19/19 11:44 98.4 F 108 H 18 121/59 L 100 03/19/19 08:11 98.5 F 109 H 18 135/74 100 03/19/19 04:00 97.5 F L 97 18 115/69 100 Weight Admit Weight 203 lb 11.2 oz Weight 203 lb 11.2 oz - Physical Exam General: Alert, Oriented x3, No acute distress HEENT: Atraumatic, PERRLA, EOMI, Mucous membr. moist/pink Lungs: Clear to auscultation, Normal air movement Cardiovascular: Regular rate, Normal S1, Normal S2, No murmurs, Gallops, Rubs Abdomen: Normal bowel sounds, Soft, No tenderness, No hepatospenomegaly, No masses Extremities: No clubbing, No cyanosis, No edema, Normal pulses, No tenderness/ swelling Skin: No rashes, No breakdown, No significant lesion Neurological: Normal gait, Normal speech, Strength at 5/5 X4 ext, Normal tone, Sensation intact, Cranial nerves 3-12 NL, Reflexes 2+ Psych/Mental Status: Mental status NL, Mood NL - Labs Result Diagrams: 03/19/19 06:12 03/17/19 05:06 Lab results: Laboratory Results - last 24 hr 03/19/19 06:12: Lactate Dehydrogenase 778 H 03/19/19 06:12: Total Bilirubin 3.0 H, Direct Bilirubin 0.9 H, AST 37 H, ALT 22 , Alkaline Phosphatase 56, Serum Total Protein 7.3, Albumin 4.4 03/19/19 06:12: WBC 8.0, RBC 1.63 L, Hgb 5.2 L*, Hct 14.9 L*, MCV 91.3, MCH 31.9 H, MCHC 34.9, RDW 21.6 H, Plt Count 151, MPV 6.9 L, Neutrophils % (Manual) 75, Band Neuts % (Manual) 2 L, Lymphocytes % (Manual) 19 L, Monocytes % (Manual ) 4, Nucleated RBCs # (Man) 8 H, Hypochromia MODERATE=16-30 cells H, Plt Morphology Comment Appears Adequate, Polychromasia SLIGHT = 2-3 cells 03/18/19 23:23: POC Glucose 141 H 03/15/19 10:25: Haptoglobin Less than 10 L Status: lab reviewed by me - Radiology Interpretation CT - Ab/Pelvis Additional Comment: no lymphadenopathy A/P - Problem (1) Autoimmune hemolytic anemia Current Visit: Yes Code(s): D59.1 - OTHER AUTOIMMUNE HEMOLYTIC ANEMIAS Status: Acute (2) Elevated LFTs Current Visit: Yes Code(s): R94.5 - ABNORMAL RESULTS OF LIVER FUNCTION STUDIES Status: Acute - Plan Plan: Continue high dose steroids Dc once t. bilirubin plateaus and hgb > 7. Will continue outpt steroids for 6 weeks.
--- NOTE | 2019-03-19 14:08 | PDOC.HOSPP ---
- Subjective Encounter Date: 03/19/19 Encounter Time: 12:00 Subjective: Patient seen and examined for hemolytic anemia. No new complaints. No overnight events - Objective Vital Signs & Weight: Vital Signs (12 hours) Temp Pulse Resp BP BP Pulse Ox 03/19/19 11:44 98.4 F 108 H 18 121/59 L 100 03/19/19 08:11 98.5 F 109 H 18 135/74 100 03/19/19 04:00 97.5 F L 97 18 115/69 100 Weight Admit Weight 203 lb 11.2 oz Weight 203 lb 11.2 oz I&O: 03/18/19 03/19/19 03/20/19 06:59 06:59 06:59 Intake Total 720 1700 Balance 720 1700 Result Diagrams: 03/19/19 06:12 03/17/19 05:06 Additional Labs: Accuchecks 03/18/19 23:23 POC Glucose 141 H ROS - Review of Systems Respiratory: denies: cough, dry, shortness of breath, hemoptysis, SOB with excertion, pleuritic pain, sputum, wheezing, other Cardiovascular: denies: chest pain, palpitations, orthopnea, paroxysmal noc. dyspnea, edema, light headedness, other - Medication Medications: Active Medications Generic Name Dose Route Start Last Admin Trade Name Belle PRN Reason Stop Dose Admin Cyanocobalamin 1,000 mcg 03/18/19 09:00 03/19/19 09:55 Vitamin B-12 PO 1,000 mcg DAILY ABELINO Administration Folic Acid 1 mg 03/18/19 09:00 03/19/19 09:55 Folvite PO 1 mg DAILY ABELINO Administration Methylprednisolone Sodium Succinate 250 mg 03/19/19 09:00 03/19/19 11:05 Solu-Medrol IVP 03/21/19 09:01 250 mg DAILY ABELINO Administration Multivitamins 1 tab 03/18/19 09:00 03/19/19 09:55 Theragran PO 1 tab DAILY ABELINO Administration Pantoprazole Sodium 40 mg 03/18/19 09:00 03/19/19 09:55 Protonix PO 40 mg DAILY ABELINO Administration Sodium Chloride 10 ml 03/15/19 09:00 03/19/19 11:05 Flush - Normal Saline IVF 10 ml Q12HR ABELINO Administration - Exam NAD Neck: no JVD Extremities: no edema Skin: no rashes Psychiatric: normal affect, A&O x 3 Hosp A/P (1) Autoimmune hemolytic anemia Code(s): D59.1 - OTHER AUTOIMMUNE HEMOLYTIC ANEMIAS Status: Acute (2) Symptomatic anemia Code(s): D64.9 - ANEMIA, UNSPECIFIED Status: Acute (3) Elevated LFTs Code(s): R94.5 - ABNORMAL RESULTS OF LIVER FUNCTION STUDIES Status: Acute (4) Pancytopenia Code(s): D61.818 - OTHER PANCYTOPENIA Status: Acute - Plan GI proph Started on IV Solumedrol 250 mg daily x 3 days Prednisone discontinued Cont PPI Hold transfusion per Hem-Onc rec AM labs DC home when Hb >7 SOFY/Flow cytometry pending
[2019-03-20 05:19] LABS: Hemoglobin 4.8 g/dL (14.0-18.0); Mean Corpuscular HGB CONC 35.3 g/dL (32.0-36.0); Mean Corpuscular Hemoglobin 32.3 pg (27.0-31.0); Mean Corpuscular Volume 91.5 fL (78.0-98.0); Mean Platelet Volume 7.1 fL (7.4-10.4); Platelet Count 131 thou/uL (130-400); RBC Distribution Width 23.2 % (11.5-14.5); Red Blood Cell (RBC) Count 1.47 mill/uL (4.70-6.10); White Blood Cell (WBC) Count 6.7 thou/uL (4.8-10.8)
[2019-03-20 05:22] LABS: Band 4 % (5-11); Lymphocytes 16 % (21-51); MDiff Complete? YES; Macrocytosis SLIGHT = 6-15 cells (100X) (0-5/hpf); Microcytosis SLIGHT = 6-15 cells (100X) (0-5/hpf); Monocytes 2 % (0-10); Neutrophil 78 % (42-75); Nucleated RBC 17 % (0); Platelet Morphology Comment Appears Adequate; Polychromasia MODERATE = 3-4 cells (100X) (0-2/hpf)
[2019-03-20] MEDS ORDERED: OCTAGAM IVPB SCH (08:30)
[2019-03-20] MEDS ORDERED: ADMIXTURE FEE CHEMO IVPB SCH (08:30)
[2019-03-20] MEDS: Multivit, Therapeutic 1 TAB PO SCH (10:02)
[2019-03-20] MEDS: Cyanocobalamin (Vitamin B-12) 1,000 MCG TAB PO SCH (10:02)
[2019-03-20] MEDS: Folic Acid 1 MG TAB PO SCH (10:02)
[2019-03-20] MEDS: methylPREDNISolone Sod Succ/PF 125 MG/2 ML VIAL IVP SCH (10:03)
--- NOTE | 2019-03-20 14:18 | PDOC.MOPN ---
Interval History: feels good. Occ dizzy - Vital Signs Vital Signs: Vital Signs (12 hours) Temp Pulse Resp BP BP BP Pulse Ox 03/20/19 13:58 98.5 F 104 H 18 126/70 100 03/20/19 13:35 110 H 113/75 03/20/19 13:00 94 106/54 L 03/20/19 12:30 97 105/53 L 03/20/19 12:00 99.0 F 101 H 16 117/56 L 97 03/20/19 11:32 98.9 F 103 H 18 120/58 L 99 03/20/19 10:56 99.0 F 107 H 16 116/57 L 98 03/20/19 07:46 98.2 F 104 H 18 113/58 L 100 Weight Admit Weight 203 lb 11.2 oz Weight 207 lb 9.6 oz - Physical Exam General: Alert, Oriented x3, No acute distress HEENT: Atraumatic, PERRLA, EOMI, Mucous membr. moist/pink Lungs: Clear to auscultation, Normal air movement Cardiovascular: Regular rate, Normal S1, Normal S2, No murmurs, Gallops, Rubs Abdomen: Normal bowel sounds, Soft, No tenderness, No hepatospenomegaly, No masses Extremities: No clubbing, No cyanosis, No edema, Normal pulses, No tenderness/ swelling Skin: No rashes (jaundice) Neurological: Normal gait, Normal speech, Strength at 5/5 X4 ext, Normal tone, Sensation intact, Cranial nerves 3-12 NL, Reflexes 2+ Psych/Mental Status: Mental status NL, Mood NL - Labs Result Diagrams: 03/20/19 05:01 03/17/19 05:06 Lab results: Laboratory Results - last 24 hr 03/20/19 05:01: WBC 6.7, RBC 1.47 L, Hgb 4.8 L*, Hct 13.5 L*, MCV 91.5, MCH 32.3 H, MCHC 35.3, RDW 23.2 H, Plt Count 131, MPV 7.1 L, Neutrophils % (Manual) 78 H, Band Neuts % (Manual) 4 L, Lymphocytes % (Manual) 16 L, Monocytes % ( Manual) 2, Nucleated RBCs # (Man) 17 H, Plt Morphology Comment Appears Adequate , Polychromasia MODERATE = 3-4 cells H, Microcytosis SLIGHT = 6-15 cells, Macrocytosis SLIGHT = 6-15 cells Status: lab reviewed by me A/P - Problem (1) Autoimmune hemolytic anemia Current Visit: Yes Code(s): D59.1 - OTHER AUTOIMMUNE HEMOLYTIC ANEMIAS Status: Acute (2) Elevated LFTs Current Visit: Yes Code(s): R94.5 - ABNORMAL RESULTS OF LIVER FUNCTION STUDIES Status: Acute - Plan Plan: IVIG today Continue steroids daily CBC, CMP
[2019-03-20] MEDS ORDERED: diphenhydrAMINE 50 MG/ML VIAL IVP SCH (15:00)
--- NOTE | 2019-03-20 19:17 | PDOC.HOSPP ---
- Subjective Encounter Date: 03/20/19 Encounter Time: 19:16 Subjective: Patient seen and examined for AIHA. No CP or SOB. No new complaints. No overnight events - Objective Vital Signs & Weight: Vital Signs (12 hours) Temp Pulse Resp BP BP BP Pulse Ox 03/20/19 13:58 98.5 F 104 H 18 126/70 100 03/20/19 13:35 110 H 113/75 03/20/19 13:00 94 106/54 L 03/20/19 12:30 97 105/53 L 03/20/19 12:00 99.0 F 101 H 16 117/56 L 97 03/20/19 11:32 98.9 F 103 H 18 120/58 L 99 03/20/19 10:56 99.0 F 107 H 16 116/57 L 98 03/20/19 07:46 98.2 F 104 H 18 113/58 L 100 Weight Admit Weight 203 lb 11.2 oz Weight 207 lb 9.6 oz I&O: 03/19/19 03/20/19 03/21/19 06:59 06:59 06:59 Intake Total 1700 Balance 1700 Result Diagrams: 03/20/19 05:01 03/17/19 05:06 Hospitalist ROS - Review of Systems Respiratory: denies: cough, dry, shortness of breath, hemoptysis, SOB with excertion, pleuritic pain, sputum, wheezing, other Cardiovascular: denies: chest pain, palpitations, orthopnea, paroxysmal noc. dyspnea, edema, light headedness, other - Medication Medications: Active Medications Generic Name Dose Route Start Last Admin Trade Name Ebq PRN Reason Stop Dose Admin Cyanocobalamin 1,000 mcg 03/18/19 09:00 03/20/19 10:02 Vitamin B-12 PO 1,000 mcg DAILY ABELINO Administration Folic Acid 1 mg 03/18/19 09:00 03/20/19 10:02 Folvite PO 1 mg DAILY ABELINO Administration Immune Globulin 90 gm/ 900 mls @ 0 mls/hr 03/20/19 08:30 03/20/19 10:33 Miscellaneous Medication IVPB 900 mls WILLCALL ABELINO Administration As Directed Methylprednisolone Sodium Succinate 250 mg 03/19/19 09:00 03/20/19 10:03 Solu-Medrol IVP 03/21/19 09:01 250 mg DAILY ABELINO Administration Multivitamins 1 tab 03/18/19 09:00 03/20/19 10:02 Theragran PO 1 tab DAILY ABELINO Administration Pantoprazole Sodium 40 mg 03/18/19 09:00 03/20/19 10:02 Protonix PO 40 mg DAILY ABELINO Administration Sodium Chloride 10 ml 03/15/19 09:00 03/20/19 10:03 Flush - Normal Saline IVF 10 ml Q12HR ABELINO Administration - Exam General Appearance: NAD Neck: supple, no JVD Heart: RRR, no rubs Respiratory: CTAB, no rales Gastrointestinal: soft, non-tender, normal bowel sounds Extremities: no edema Hosp A/P (1) Autoimmune hemolytic anemia Code(s): D59.1 - OTHER AUTOIMMUNE HEMOLYTIC ANEMIAS Status: Acute (2) Symptomatic anemia Code(s): D64.9 - ANEMIA, UNSPECIFIED Status: Acute (3) Elevated LFTs Code(s): R94.5 - ABNORMAL RESULTS OF LIVER FUNCTION STUDIES Status: Acute (4) Pancytopenia Code(s): D61.818 - OTHER PANCYTOPENIA Status: Acute - Plan s/p IVIG on IV Solumedrol 250 mg daily x 3 days 1 unit PRBC ordered Cont PPI AM labs SOFY/Flow cytometry pending
[2019-03-21 05:21] LABS: Hemoglobin 5.9 g/dL (14.0-18.0); Mean Corpuscular HGB CONC 35.5 g/dL (32.0-36.0); Mean Corpuscular Hemoglobin 32.3 pg (27.0-31.0); Mean Corpuscular Volume 91.2 fL (78.0-98.0); Mean Platelet Volume 7.1 fL (7.4-10.4); Platelet Count 132 thou/uL (130-400); RBC Distribution Width 25.1 % (11.5-14.5); Red Blood Cell (RBC) Count 1.82 mill/uL (4.70-6.10); White Blood Cell (WBC) Count 6.3 thou/uL (4.8-10.8)
[2019-03-21 05:25] LABS: Bilirubin, Direct 0.6 mg/dL (0.1-0.3); Bilirubin, Total 1.5 mg/dL (0.2-1.2)
[2019-03-21 05:26] LABS: Band 2 % (5-11); Hypochromia MODERATE=16-30 cells (100X) (0-5/hpf); Lymphocytes 15 % (21-51); MDiff Complete? YES; Metamyelocyte 1 % (0-0); Monocytes 1 % (0-10); Neutrophil 81 % (42-75); Nucleated RBC 5 % (0); Platelet Morphology Comment Appears Adequate; Polychromasia SLIGHT = 2-3 cells (100X) (0-2/hpf)
[2019-03-21] MEDS: Folic Acid 1 MG TAB PO SCH (10:03)
[2019-03-21] MEDS: methylPREDNISolone Sod Succ/PF 125 MG/2 ML VIAL IVP SCH (10:03)
[2019-03-21] MEDS: Cyanocobalamin (Vitamin B-12) 1,000 MCG TAB PO SCH (10:03)
[2019-03-21] MEDS: Multivit, Therapeutic 1 TAB PO SCH (10:03)
--- NOTE | 2019-03-21 13:47 | PDOC.MOPN ---
Interval History: Pt feeling better today. Hb 5.9 after IVIg and 1 unit PRBC. He tolerated both well. Bilirubin improving. - Vital Signs Vital Signs: Vital Signs (12 hours) Temp Pulse Pulse Resp BP BP Pulse Ox 03/21/19 07:42 98.0 F 94 16 126/79 100 03/21/19 02:44 98.2 F 83 16 109/61 99 Weight Admit Weight 203 lb 11.2 oz Weight 207 lb 9.6 oz - Physical Exam General: Alert, Oriented x3, Cooperative, No acute distress HEENT: EOMI Lungs: Normal air movement Cardiovascular: Regular rate Extremities: No edema Neurological: Cranial nerves 3-12 NL Psych/Mental Status: Mental status NL, Mood NL - Labs Result Diagrams: 03/21/19 04:53 03/17/19 05:06 Lab results: Laboratory Results - last 24 hr 03/21/19 04:53: Lactate Dehydrogenase 668 H 03/21/19 04:53: Total Bilirubin 1.5 H, Direct Bilirubin 0.6 H 03/21/19 04:53: WBC 6.3, RBC 1.82 L, Hgb 5.9 L*, Hct 16.6 L, MCV 91.2, MCH 32.3 H, MCHC 35.5, RDW 25.1 H, Plt Count 132, MPV 7.1 L, Neutrophils % (Manual) 81 H , Band Neuts % (Manual) 2 L, Lymphocytes % (Manual) 15 L, Monocytes % (Manual) 1 , Metamyelocytes % (Man) 1 H, Nucleated RBCs # (Man) 5 H, Hypochromia MODERATE= 16-30 cells H, Plt Morphology Comment Appears Adequate, Polychromasia SLIGHT = 2 -3 cells 03/20/19 15:14: Blood Type A POSITIVE, Antibody Screen POSITIVE H, Antibody Identification Not Reportable, Crossmatch See Detail A/P - Problem (1) Autoimmune hemolytic anemia Current Visit: Yes Code(s): D59.1 - OTHER AUTOIMMUNE HEMOLYTIC ANEMIAS Status: Acute - Plan Plan: Warm AIHA: unknown cause, CT-CAP negative, SOFY and flow pending -- s/p IVIg and 1 unit PRBC with imrpovement, Bilirubin downtrending last day of high-dose Solumedrol today, restart Prednisone 1 mg/kg daily tomorrow, cont Protonix avoid further blood transfusions at this time as pt is feeling better: Would give to him if his Hb drops and he becomes more symptomatic f/u flow cytometry, SOFY, cold agglutinin trend bilirubin and LDH Will be ok for discharge once Hb > 6.5-7.0
[2019-03-21 18:07] LABS: ANA Symphony (Qualitative) Negative (Negative); ANA Symphony (Quantitative) 0.3 Ratio (< 0.7 Negative); dsDNA IgG Antibody 3.9 IU/mL (<10 Negative)
--- NOTE | 2019-03-21 19:13 | PDOC.HOSPP ---
- Subjective Encounter Date: 03/21/19 Encounter Time: 08:30 Subjective: Patient seen and examined for hemolytic anemia. No new complaints. No overnight events - Objective Vital Signs & Weight: Vital Signs (12 hours) Temp Pulse Resp BP BP Pulse Ox 03/21/19 11:00 98.4 F 94 16 120/75 109/59 L 98 03/21/19 08:00 100 03/21/19 07:42 98.0 F 94 16 126/79 100 Weight Admit Weight 203 lb 11.2 oz Weight 207 lb 9.6 oz I&O: 03/20/19 03/21/19 03/22/19 06:59 06:59 06:59 Intake Total 350 240 Balance 350 240 Result Diagrams: 03/22/19 05:12 03/17/19 05:06 Hospitalist ROS - Review of Systems Respiratory: denies: cough, dry, shortness of breath, hemoptysis, SOB with excertion, pleuritic pain, sputum, wheezing, other Cardiovascular: denies: chest pain, palpitations, orthopnea, paroxysmal noc. dyspnea, edema, light headedness, other Gastrointestinal: denies: nausea, vomitting, abdominal pain, diarrhea, constipation, melena, hematochezia, other - Medication Medications: Active Medications Generic Name Dose Route Start Last Admin Trade Name Freq PRN Reason Stop Dose Admin Cyanocobalamin 1,000 mcg 03/18/19 09:00 03/21/19 10:03 Vitamin B-12 PO 1,000 mcg DAILY ABELINO Administration Diphenhydramine HCl 50 mg 03/20/19 15:00 03/20/19 23:22 Benadryl IVP 50 mg WILLCALL ABELINO Administration Folic Acid 1 mg 03/18/19 09:00 03/21/19 10:03 Folvite PO 1 mg DAILY ABELINO Administration Multivitamins 1 tab 03/18/19 09:00 03/21/19 10:03 Theragran PO 1 tab DAILY ABELINO Administration Pantoprazole Sodium 40 mg 03/18/19 09:00 03/21/19 10:03 Protonix PO 40 mg DAILY ABELINO Administration Sodium Chloride 10 ml 03/15/19 09:00 03/21/19 10:31 Flush - Normal Saline IVF 10 ml Q12HR ABELINO Administration - Exam General Appearance: NAD Neck: supple, no JVD Extremities: no edema Psychiatric: normal affect, A&O x 3 Hosp A/P (1) Autoimmune hemolytic anemia Code(s): D59.1 - OTHER AUTOIMMUNE HEMOLYTIC ANEMIAS Status: Acute (2) Symptomatic anemia Code(s): D64.9 - ANEMIA, UNSPECIFIED Status: Acute (3) Elevated LFTs Code(s): R94.5 - ABNORMAL RESULTS OF LIVER FUNCTION STUDIES Status: Acute (4) Pancytopenia Code(s): D61.818 - OTHER PANCYTOPENIA Status: Acute - Plan plan discussed w/ family s/p IVIG and IV Solumedrol 250 mg daily x 3 days s/p 1 unit PRBC Cont 1 mg/kg Prednisone Cont PPI SOFY/Flow cytometry pending AM labs
[2019-03-22 05:40] LABS: Band 4 % (5-11); Eosinophils 1 % (0-10); Hemoglobin 6.3 g/dL (14.0-18.0); Lymphocytes 13 % (21-51); MDiff Complete? YES; Mean Corpuscular HGB CONC 33.8 g/dL (32.0-36.0); Mean Corpuscular Hemoglobin 31.8 pg (27.0-31.0); Mean Corpuscular Volume 93.9 fL (78.0-98.0); Mean Platelet Volume 7.2 fL (7.4-10.4); Monocytes 4 % (0-10); Neutrophil 78 % (42-75); Nucleated RBC 13 % (0); Platelet Count 139 thou/uL (130-400); Platelet Morphology Comment Appears Adequate; RBC Distribution Width 26.3 % (11.5-14.5); Red Blood Cell (RBC) Count 1.99 mill/uL (4.70-6.10); White Blood Cell (WBC) Count 6.5 thou/uL (4.8-10.8)
[2019-03-22 05:52] LABS: Bilirubin, Direct 0.6 mg/dL (0.1-0.3); Bilirubin, Total 1.5 mg/dL (0.2-1.2)
[2019-03-22] MEDS: Cyanocobalamin (Vitamin B-12) 1,000 MCG TAB PO SCH (09:36)
[2019-03-22] MEDS: Folic Acid 1 MG TAB PO SCH (09:36)
[2019-03-22] MEDS: Multivit, Therapeutic 1 TAB PO SCH (09:36)
[2019-03-22] MEDS: predniSONE 50 MG TAB PO SCH (09:37)
--- NOTE | 2019-03-22 09:47 | PDOC.MOPN ---
Interval History: feels well, no jaundice - Vital Signs Vital Signs: Vital Signs (12 hours) Temp Pulse Resp BP Pulse Ox 03/22/19 07:54 98.1 F 83 18 125/76 98 Weight Admit Weight 203 lb 11.2 oz Weight 207 lb 9.6 oz - Physical Exam General: Alert, Oriented x3, No acute distress HEENT: Atraumatic, PERRLA, EOMI, Mucous membr. moist/pink Lungs: Clear to auscultation, Normal air movement Cardiovascular: Regular rate, Normal S1, Normal S2, No murmurs, Gallops, Rubs Abdomen: Normal bowel sounds, Soft, No tenderness, No hepatospenomegaly, No masses Extremities: No clubbing, No cyanosis, No edema, Normal pulses, No tenderness/ swelling Skin: No rashes, No breakdown, No significant lesion Neurological: Normal gait, Normal speech, Strength at 5/5 X4 ext, Normal tone, Sensation intact, Cranial nerves 3-12 NL, Reflexes 2+ Psych/Mental Status: Mental status NL, Mood NL - Labs Result Diagrams: 03/22/19 05:12 03/17/19 05:06 Lab results: Laboratory Results - last 24 hr 03/22/19 05:12: WBC 6.5, RBC 1.99 L, Hgb 6.3 L, Hct 18.7 L, MCV 93.9, MCH 31.8 H , MCHC 33.8, RDW 26.3 H, Plt Count 139, MPV 7.2 L, Neutrophils % (Manual) 78 H, Band Neuts % (Manual) 4 L, Lymphocytes % (Manual) 13 L, Monocytes % (Manual) 4, Eosinophils % (Manual) 1, Nucleated RBCs # (Man) 13 H, Plt Morphology Comment Appears Adequate 03/22/19 05:12: Lactate Dehydrogenase 657 H 03/22/19 05:12: Total Bilirubin 1.5 H, Direct Bilirubin 0.6 H 03/19/19 06:12: Flow Cytometry Interp 03/18/19 03:45: SOFY Screen Negative, SOFY Scrn Qualitative Negative, SOFY Scrn Quantitative 0.3, SOFY & Anti-SHIRA New Method NEW METHOD , Anti-ds DNA IgG Ab 3.9, Anti-ds DNA Interp Status: lab reviewed by me A/P - Problem (1) Autoimmune hemolytic anemia Current Visit: Yes Code(s): D59.1 - OTHER AUTOIMMUNE HEMOLYTIC ANEMIAS Status: Acute (2) Elevated LFTs Current Visit: Yes Code(s): R94.5 - ABNORMAL RESULTS OF LIVER FUNCTION STUDIES Status: Acute - Plan Plan: Warm AIHA: unknown cause, CT-CAP negative, -- s/p IVIg and 1 unit PRBC with imrpovement, Bilirubin downtrending completed high-dose Solumedrol today, restart Prednisone 1 mg/kg daily tomorrow, cont Protonix avoid further blood transfusions at this time as pt is feeling better: Would give to him if his Hb drops and he becomes more symptomatic f/u flow cytometry, SOFY, cold agglutinin trend bilirubin and LDH Will be ok for discharge once Hb > 6.5-7.0, planning tomorrow
--- NOTE | 2019-03-22 10:46 | PDOC.HOSPP ---
- Subjective Encounter Date: 03/22/19 Encounter Time: 10:00 Subjective: Patient seen and examined for anemia. Feels better. No SOB. No new complaints. No overnight events - Objective Vital Signs & Weight: Vital Signs (12 hours) Temp Pulse Resp BP Pulse Ox 03/22/19 07:54 98.1 F 83 18 125/76 98 Weight Admit Weight 203 lb 11.2 oz Weight 207 lb 9.6 oz I&O: 03/21/19 03/22/19 03/23/19 06:59 06:59 06:59 Intake Total 350 240 Balance 350 240 Result Diagrams: 03/22/19 05:12 03/17/19 05:06 Hospitalist ROS - Review of Systems Respiratory: denies: cough, dry, shortness of breath, hemoptysis, SOB with excertion, pleuritic pain, sputum, wheezing, other Cardiovascular: denies: chest pain, palpitations, orthopnea, paroxysmal noc. dyspnea, edema, light headedness, other - Medication Medications: Active Medications Generic Name Dose Route Start Last Admin Trade Name Ebq PRN Reason Stop Dose Admin Cyanocobalamin 1,000 mcg 03/18/19 09:00 03/22/19 09:36 Vitamin B-12 PO 1,000 mcg DAILY ABELINO Administration Diphenhydramine HCl 50 mg 03/20/19 15:00 03/20/19 23:22 Benadryl IVP 50 mg WILLCALL ABELINO Administration Folic Acid 1 mg 03/18/19 09:00 03/22/19 09:36 Folvite PO 1 mg DAILY ABELINO Administration Multivitamins 1 tab 03/18/19 09:00 03/22/19 09:36 Theragran PO 1 tab DAILY ABELINO Administration Pantoprazole Sodium 40 mg 03/18/19 09:00 03/22/19 09:36 Protonix PO 40 mg DAILY ABELINO Administration Prednisone 100 mg 03/22/19 09:00 03/22/19 09:37 Prednisone PO 100 mg DAILY ABELINO Administration Sodium Chloride 10 ml 03/15/19 09:00 03/22/19 09:37 Flush - Normal Saline IVF 10 ml Q12HR ABELINO Administration - Exam General Appearance: NAD Neck: supple, no JVD Heart: RRR, no gallops Respiratory: CTAB, no rales Gastrointestinal: soft, normal bowel sounds Extremities: no edema Hosp A/P (1) Autoimmune hemolytic anemia Code(s): D59.1 - OTHER AUTOIMMUNE HEMOLYTIC ANEMIAS Status: Acute (2) Symptomatic anemia Code(s): D64.9 - ANEMIA, UNSPECIFIED Status: Acute (3) Elevated LFTs Code(s): R94.5 - ABNORMAL RESULTS OF LIVER FUNCTION STUDIES Status: Acute (4) Pancytopenia Code(s): D61.818 - OTHER PANCYTOPENIA Status: Acute - Plan plan discussed w/ family s/p IVIG and IV Solumedrol 250 mg daily x 3 days s/p 1 unit PRBC Cont PO Prednisone Cont PPI SOFY/Flow cytometry report discussed with family AM labs - CBC/LDH/Bilirubin
[2019-03-22 11:39] VITALS: BMI 28.9
[2019-03-22] MEDS ORDERED: Temazepam 15 MG CAP PO PRN (22:16)
[2019-03-23 07:49] VITALS: BP 118/76; TEMP 98.6
[2019-03-23 08:05] LABS: Bilirubin, Direct 0.8 mg/dL (0.1-0.3); Bilirubin, Total 2.1 mg/dL (0.2-1.2)
[2019-03-23 08:46] LABS: Anisocytosis MARKED = >30 cells (100X) (0-5/hpf); Band 4 % (5-11); Hemoglobin 7.4 g/dL (14.0-18.0); Lymphocytes 34 % (21-51); MDiff Complete? YES; Mean Corpuscular HGB CONC 34.2 g/dL (32.0-36.0); Mean Corpuscular Hemoglobin 32.9 pg (27.0-31.0); Mean Corpuscular Volume 96.1 fL (78.0-98.0); Mean Platelet Volume 7.3 fL (7.4-10.4); Monocytes 3 % (0-10); Neutrophil 59 % (42-75); Nucleated RBC 8 % (0); Platelet Count 125 thou/uL (130-400); Platelet Morphology Comment Appears Decreased; Polychromasia MARKED = >4 cells (100X) (0-2/hpf); RBC Distribution Width 25.8 % (11.5-14.5); Red Blood Cell (RBC) Count 2.24 mill/uL (4.70-6.10); White Blood Cell (WBC) Count 6.3 thou/uL (4.8-10.8)
[2019-03-23] MEDS: predniSONE 50 MG TAB PO SCH (09:46)
[2019-03-23] MEDS: Multivit, Therapeutic 1 TAB PO SCH (09:46)
[2019-03-23] MEDS: Cyanocobalamin (Vitamin B-12) 1,000 MCG TAB PO SCH (09:46)
[2019-03-23] MEDS: Folic Acid 1 MG TAB PO SCH (09:46)
--- NOTE | 2019-03-23 12:50 | PDOC.MOPN ---
Interval History: Feels well, wants to go home. - Vital Signs Vital Signs: Vital Signs (12 hours) Temp Pulse Resp BP BP BP Pulse Ox 03/23/19 07:47 98.6 F 75 18 119/80 122/79 118/76 100 Weight Admit Weight 203 lb 11.2 oz Weight 207 lb 9.6 oz - Physical Exam General: Alert, Oriented x3, No acute distress HEENT: Atraumatic, PERRLA, EOMI, Mucous membr. moist/pink Lungs: Clear to auscultation, Normal air movement Cardiovascular: Regular rate, Normal S1, Normal S2, No murmurs, Gallops, Rubs Abdomen: Normal bowel sounds, Soft, No tenderness, No hepatospenomegaly, No masses Extremities: No clubbing, No cyanosis, No edema, Normal pulses, No tenderness/ swelling Skin: No rashes, No breakdown, No significant lesion Neurological: Normal gait, Normal speech, Strength at 5/5 X4 ext, Normal tone, Sensation intact, Cranial nerves 3-12 NL, Reflexes 2+ Psych/Mental Status: Mental status NL, Mood NL - Labs Result Diagrams: 03/23/19 07:36 03/17/19 05:06 Lab results: Laboratory Results - last 24 hr 03/23/19 07:36: WBC 6.3, RBC 2.24 L, Hgb 7.4 L, Hct 21.5 L, MCV 96.1, MCH 32.9 H , MCHC 34.2, RDW 25.8 H, Plt Count 125 L, MPV 7.3 L, Neutrophils % (Manual) 59, Band Neuts % (Manual) 4 L, Lymphocytes % (Manual) 34, Monocytes % (Manual) 3, Nucleated RBCs # (Man) 8 H, Plt Morphology Comment Appears Decreased L, Polychromasia MARKED = >4 cells H, Anisocytosis MARKED = >30 cells H 03/23/19 07:36: Lactate Dehydrogenase 650 H 03/23/19 07:36: Total Bilirubin 2.1 H, Direct Bilirubin 0.8 H Status: lab reviewed by me A/P - Problem (1) Autoimmune hemolytic anemia Current Visit: Yes Code(s): D59.1 - OTHER AUTOIMMUNE HEMOLYTIC ANEMIAS Status: Acute (2) Elevated LFTs Current Visit: Yes Code(s): R94.5 - ABNORMAL RESULTS OF LIVER FUNCTION STUDIES Status: Acute - Plan Plan: Ok to dc home continue prednisone 100mg po daily continue protonix follow-up Tuesday 4pm for labs, MD visit Call clinic if jaundice over the weekend.
== END 2019-03-23 14:11 | disposition home or self-care (01) | DRG 809 ==
LOC: ERS 13:30 → 2NO 20:54 → ONC 03-17 15:02
PROVIDERS: ADMIT Hospitalist; ATTEND Hospitalist
PROC: 30233N1 Transfusion of Nonautologous Red Blood Cells into Peripheral Vein, Percutaneous Approach (ICD-10-PCS; principal; 2019-03-20)
DX: D59.1 Other autoimmune hemolytic anemias (principal); D61.818 Other pancytopenia; R94.5 Abnormal results of liver function studies
CPT/HCPCS: 36415; 36416; 36430; 71046; 71260; 74177; 76705; 80048; 80053; 80061; 80074; 80076; 82247; 82248; 82274; 82607; 82728; 82746; 83010; 83036; 83540; 83550; 83615; 83690; 84443; 85007; 85025; 85027; 85046; 85060; 85379; 85384; 85610; 85730; 86038; 86225; 86850; 86860; 86870; 86880; 86900; 86901; 86905; 86922; 86970; 86978; 87389; 88184; 96360; C9113; J1200; J1568; J2920; J2930; P9016; Q9966

== ENCOUNTER 2019-10-30 08:39 | Day surgery (SDC) | payer BC, OTHER ==
[~2019-10-30 08:39] MED LIST: Acetaminophen 500 MG TAB PO SCH; Rituximab 100 MG in Sodium Chloride 0.9% 100 ML IVPB SCH; Rituximab 500 MG, Rituximab 200 MG in Sodium Chloride 0.9% 500 ML IVPB SCH; diphenhydrAMINE 25 MG in Sodium Chloride 0.9% 50 ML IVPB SCH
[2019-10-30 08:46] VITALS: BP 139/95; TEMP 98.9
[2019-10-30] MEDS ORDERED: Sodium Chloride 0.9% 20 ML ONE (08:57)
== END 2019-10-30 14:46 | disposition home or self-care (01) ==
LOC: ONC/OP 08:39
PROVIDERS: ATTEND Internal Medicine Hematology & Oncology
DX: D59.1 Other autoimmune hemolytic anemias (principal)
CPT/HCPCS: 36415; 80053; 82248; 83615; 84100; 84550; 96375; 96413; 96415; J1200; J3490; J7030; J9312

== ENCOUNTER 2019-11-06 08:33 | Day surgery (SDC) | payer BC, OTHER ==
[~2019-11-06 08:33] MED LIST changes: -Rituximab 100 MG in Sodium Chloride 0.9% 100 ML IVPB SCH; -Rituximab 500 MG, Rituximab 200 MG in Sodium Chloride 0.9% 500 ML IVPB SCH; +Rituximab 500 MG, Rituximab 300 MG in Sodium Chloride 0.9% 500 ML IVPB SCH
[2019-11-06] MEDS ORDERED: Sodium Chloride 0.9% 20 ML ONE (08:35)
[2019-11-06 09:06] VITALS: BP 124/84; TEMP 98.9
== END 2019-11-06 14:14 | disposition home or self-care (01) ==
LOC: ONC/OP 08:33
PROVIDERS: ATTEND Internal Medicine Hematology & Oncology
DX: D59.1 Other autoimmune hemolytic anemias (principal)
CPT/HCPCS: 96375; 96413; 96415; J1200; J7030; J9312

== ENCOUNTER 2019-11-13 08:29 | Day surgery (SDC) | payer BC, OTHER ==
[2019-11-13] MEDS ORDERED: Sodium Chloride 0.9% 20 ML ONE (08:31)
[2019-11-13 09:39] VITALS: BP 128/82; TEMP 99
== END 2019-11-13 14:04 | disposition home or self-care (01) ==
LOC: ONC/OP 08:29
PROVIDERS: ATTEND Internal Medicine Hematology & Oncology
DX: Z51.12 Encounter for antineoplastic immunotherapy (principal); D59.1 Other autoimmune hemolytic anemias
CPT/HCPCS: 80053; 82248; 83010; 83615; 84100; 84550; 96375; 96413; 96415; J1200; J7030; J9312

== ENCOUNTER 2019-11-20 08:39 | Day surgery (SDC) | payer BC, OTHER ==
[~2019-11-20 08:39] MED LIST changes: +diphenhydrAMINE 25 MG in Sodium Chloride 0.9% 50 ML IVPB PRN; -diphenhydrAMINE 25 MG in Sodium Chloride 0.9% 50 ML IVPB SCH
[2019-11-20] MEDS ORDERED: Sodium Chloride 0.9% 20 ML ONE (09:28)
[2019-11-20 10:29] VITALS: BP 111/59; TEMP 98.8
== END 2019-11-20 13:53 | disposition home or self-care (01) ==
LOC: ONC/OP 08:39
PROVIDERS: ATTEND Internal Medicine Hematology & Oncology
DX: D59.1 Other autoimmune hemolytic anemias (principal)
CPT/HCPCS: 96375; 96413; 96415; J1200; J7030; J9312

== ENCOUNTER 2020-09-16 09:26 | Day surgery (SDC) | payer BC, OTHER ==
[~2020-09-16 09:26] MED LIST changes: +Acetaminophen 500 MG TAB PO PRN; -Acetaminophen 500 MG TAB PO SCH; -Rituximab 500 MG, Rituximab 300 MG in Sodium Chloride 0.9% 500 ML IVPB SCH; -diphenhydrAMINE 25 MG in Sodium Chloride 0.9% 50 ML IVPB PRN; +diphenhydrAMINE 25 MG in Sodium Chloride 0.9% 50 ML IVPB SCH
[2020-09-16 09:49] VITALS: BP 135/89; TEMP 98.4
== END 2020-09-16 14:21 | disposition home or self-care (01) ==
LOC: ONC/OP 09:26
PROVIDERS: ATTEND Internal Medicine Hematology & Oncology
DX: D59.10 Autoimmune hemolytic anemia, unspecified (principal)
CPT/HCPCS: 96375; 96413; 96415; J1200; J7030; Q5115

== ENCOUNTER 2020-09-24 09:22 | Day surgery (SDC) | payer BC, OTHER ==
[2020-09-24] MEDS ORDERED: Sodium Chloride 0.9% 20 ML ONE (10:10)
[2020-09-24 10:17] VITALS: BP 128/76; TEMP 98.8
== END 2020-09-24 14:15 | disposition home or self-care (01) ==
LOC: ONC/OP 09:22
PROVIDERS: ATTEND Internal Medicine Hematology & Oncology
DX: D59.10 Autoimmune hemolytic anemia, unspecified (principal)
CPT/HCPCS: 96375; 96413; 96415; J1200; J7030; Q5115

== ENCOUNTER 2020-10-02 09:56 | Day surgery (SDC) | payer BC, OTHER ==
[2020-10-02] MEDS ORDERED: Sodium Chloride 0.9% 20 ML ONE (10:02)
[2020-10-02 10:29] VITALS: BP 138/87; TEMP 98.8
== END 2020-10-02 12:51 | disposition home or self-care (01) ==
LOC: ONC/OP 09:56
PROVIDERS: ATTEND Internal Medicine Hematology & Oncology
DX: D59.10 Autoimmune hemolytic anemia, unspecified (principal)
CPT/HCPCS: 96375; 96413; 96415; J1200; J7030; Q5115

== ENCOUNTER 2020-10-08 09:32 | Day surgery (SDC) | payer BC, OTHER ==
[2020-10-08] MEDS ORDERED: Sodium Chloride 0.9% 20 ML ONE (10:38)
[2020-10-08] MEDS ORDERED: diphenhydrAMINE 50 MG/ML VIAL IVP PRN (11:04)
[2020-10-08 13:12] VITALS: BP 110/63
== END 2020-10-08 14:13 | disposition home or self-care (01) ==
LOC: ONC/OP 09:32
PROVIDERS: ATTEND Internal Medicine Hematology & Oncology
DX: D59.10 Autoimmune hemolytic anemia, unspecified (principal)
CPT/HCPCS: 96375; 96413; 96415; J1200; J7030; Q5115

== ENCOUNTER 2021-03-28 06:33 | Inpatient (IN) | payer OTHER ==
[2021-03-28 07:00] LABS: #Eosinphils 0.1 thou/uL (0.0-0.7); #Lymphocytes 0.9 thou/uL (1.20-3.40); #Monocytes 0.2 thou/uL (0.11-0.59); #Neutrophils 3.2 thou/uL (1.40-6.50); %Basophils 0.4 % (0.0-1.0); %Eosinophils 1.3 % (0.0-10.0); %Lymphocytes 19.7 % (21.0-51.0); %Monocytes 4.9 % (0.0-10.0); %Neutrophils 73.7 % (42.0-75.0); Hemoglobin 6.3 g/dL (14.0-18.0); Mean Corpuscular HGB CONC 36.1 g/dL (32.0-36.0); Mean Corpuscular Hemoglobin 29.4 pg (27.0-31.0); Mean Corpuscular Volume 81.4 fL (78.0-98.0); Mean Platelet Volume 7.7 fL (7.4-10.4); Platelet Count 141 thou/uL (130-400); RBC Distribution Width 13.1 % (11.5-14.5); Red Blood Cell (RBC) Count 2.16 mill/uL (4.70-6.10); White Blood Cell (WBC) Count 4.3 thou/uL (4.8-10.8)
[2021-03-28 07:14] LABS: ALT (SGPT) 30 U/L (8-55); AST (SGOT) 47 U/L (5-34); Alkaline Phosphatase 64 U/L (40-110); Anion Gap 10 mmol/L (10-20); BUN (Urea Nitrogen) 15 mg/dL (8.9-20.6); Bilirubin, Total 4.1 mg/dL (0.2-1.2); Calc. Creatinine Clearance 0 mL/min (70-130); Calcium 8.9 mg/dL (7.8-10.44); Carbon Dioxide 24 mmol/L (22-29); Chloride 108 mmol/L (98-107); Globulin 3.5 g/dL (2.4-3.5); Glucose 104 mg/dL (70-105); Potassium 3.4 mmol/L (3.5-5.1); Protein, Total 7.5 g/dL (6.0-8.3); Sodium 139 mmol/L (136-145)
[2021-03-28 09:41] LABS: Bacteria/HPF None Seen HPF (None Seen); Bilirubin Negative (Negative); Blood, Urine 1+ (Negative); Clarity Clear (Clear); Glucose, Urine (Dipstick) Normal (Negative); Ketone, Urine Negative (Negative); Leukocyte Negative Leu/uL (Negative); Nitrite Negative (Negative); Protein, Urine (Dipstick) 20 mg/dL (Neg-Trace); RBC/HPF 0-3 HPF (0-3); Squamous Epithelial None Seen HPF (0-3); Urobilinogen 3 mg/dL (Less than 2); WBC/HPF 0-3 HPF (0-3)
[2021-03-28] MEDS ORDERED: Ondansetron ODT 4 MG TAB PO PRN (12:18)
[2021-03-28 12:31] LABS: Reticulocyte Count 2.7 % (0.5-1.5)
[2021-03-28 12:34] LABS: Hemoglobin 6.3 g/dL (14.0-18.0)
[2021-03-28 12:52] LABS: Iron 79 ug/dL (65-175); Iron Binding Capacity, Total 238 mcg/dL (261-462)
[2021-03-28] MEDS ORDERED: predniSONE 20 MG TAB PO SCH (13:15)
[2021-03-28] MEDS: Acetaminophen 325 MG TAB PO PRN (14:08)
[2021-03-28 14:14] LABS: Ferritin 3633.45 ng/mL (22-322)
[2021-03-28 19:35] LABS: Hemoglobin 5.9 g/dL (14.0-18.0)
[2021-03-28 23:50] LABS: Hemoglobin 5.8 g/dL (14.0-18.0)
[2021-03-29 04:44] LABS: Hemoglobin 5.5 g/dL (14.0-18.0); Mean Corpuscular HGB CONC 36.4 g/dL (32.0-36.0); Mean Corpuscular Hemoglobin 29.7 pg (27.0-31.0); Mean Corpuscular Volume 81.6 fL (78.0-98.0); Mean Platelet Volume 8.1 fL (7.4-10.4); Platelet Count 173 thou/uL (130-400); RBC Distribution Width 13.5 % (11.5-14.5); Red Blood Cell (RBC) Count 1.85 mill/uL (4.70-6.10); White Blood Cell (WBC) Count 4.5 thou/uL (4.8-10.8)
[2021-03-29 05:01] LABS: Anion Gap 12 mmol/L (10-20); BUN (Urea Nitrogen) 12 mg/dL (8.9-20.6); Calc. Creatinine Clearance 209 mL/min (70-130); Calcium 8.7 mg/dL (7.8-10.44); Carbon Dioxide 24 mmol/L (22-29); Chloride 106 mmol/L (98-107); Glucose 111 mg/dL (70-105); Sodium 138 mmol/L (136-145)
[2021-03-29 05:05] LABS: Band 3 % (5-11); Lymphocytes 12 % (21-51); MDiff Complete? YES; Metamyelocyte 1 % (0-0); Microcytosis MODERATE=15-30 cells (100X) (0-5/hpf); Monocytes 5 % (0-10); Myelocyte 2 % (0-0); Neutrophil 77 % (42-75); Nucleated RBC 7 % (0); Platelet Morphology Comment Appears Adequate; Polychromasia SLIGHT = 2-3 cells (100X) (0-2/hpf)
[2021-03-29] MEDS ORDERED: diphenhydrAMINE 50 MG/ML VIAL IVP SCH (08:15)
[2021-03-29] MEDS ORDERED: Acetaminophen 500 MG TAB PO SCH (08:15)
[2021-03-29] MEDS: predniSONE 20 MG TAB PO SCH (08:40)
[2021-03-29 11:01] LABS: Hemoglobin 5.2 g/dL (14.0-18.0)
[2021-03-29 13:40] LABS: Hemoglobin 6.4 g/dL (14.0-18.0)
[2021-03-29] MEDS ORDERED: OCTAGAM 10% (10 GM/100 ML VIAL) IVPB SCH (15:00)
[2021-03-29] MEDS ORDERED: OCTAGAM 10% 80 GM in Admixture Fee 1 EACH IVPB SCH (20:00)
[2021-03-29] MEDS: ADMIXTURE FEE IVPB SCH (21:35)
[2021-03-29] MEDS: OCTAGAM IVPB SCH (21:35)
[2021-03-30 04:30] LABS: Hemoglobin 5.8 g/dL (14.0-18.0); Mean Corpuscular HGB CONC 35.8 g/dL (32.0-36.0); Mean Corpuscular Hemoglobin 29.3 pg (27.0-31.0); Mean Corpuscular Volume 81.9 fL (78.0-98.0); Mean Platelet Volume 8.1 fL (7.4-10.4); Platelet Count 142 thou/uL (130-400); RBC Distribution Width 14.2 % (11.5-14.5); Red Blood Cell (RBC) Count 1.96 mill/uL (4.70-6.10); White Blood Cell (WBC) Count 5.4 thou/uL (4.8-10.8)
[2021-03-30 04:44] LABS: ALT (SGPT) 43 U/L (8-55); AST (SGOT) 44 U/L (5-34); Albumin 3.4 g/dL (3.5-5.0); Alkaline Phosphatase 52 U/L (40-110); Anion Gap 7 mmol/L (10-20); BUN (Urea Nitrogen) 11 mg/dL (8.9-20.6); Bilirubin, Total 1.7 mg/dL (0.2-1.2); Calc. Creatinine Clearance 183 mL/min (70-130); Calcium 8.4 mg/dL (7.8-10.44); Carbon Dioxide 27 mmol/L (22-29); Chloride 105 mmol/L (98-107); Globulin 4.7 g/dL (2.4-3.5); Glucose 110 mg/dL (70-105); Potassium 3.4 mmol/L (3.5-5.1); Protein, Total 8.1 g/dL (6.0-8.3); Sodium 136 mmol/L (136-145)
[2021-03-30 05:24] LABS: Band 3 % (5-11); Eosinophils 1 % (0-10); Lymphocytes 8 % (21-51); MDiff Complete? YES; Metamyelocyte 2 % (0-0); Monocytes 4 % (0-10); Neutrophil 81 % (42-75); Nucleated RBC 12 % (0); Platelet Morphology Comment Appears Adequate; Polychromasia SLIGHT = 2-3 cells (100X) (0-2/hpf); Reactive Lymphocytes 1 % (0-10)
[2021-03-30] MEDS: predniSONE 20 MG TAB PO SCH (09:03)
[2021-03-30] MEDS ORDERED: Acetaminophen 500 MG TAB PO SCH (13:00)
[2021-03-30] MEDS: diphenhydrAMINE 50 MG CAP PO PRN (14:20)
[2021-03-30 15:20] VITALS: BMI 27.8
[2021-03-30] MEDS: ADMIXTURE FEE IVPB SCH (21:24)
[2021-03-30] MEDS: OCTAGAM IVPB SCH (21:24)
[2021-03-31 07:03] LABS: Hemoglobin 6.3 g/dL (14.0-18.0); Mean Corpuscular HGB CONC 36.5 g/dL (32.0-36.0); Mean Corpuscular Hemoglobin 30.1 pg (27.0-31.0); Mean Corpuscular Volume 82.7 fL (78.0-98.0); Mean Platelet Volume 7.7 fL (7.4-10.4); Platelet Count 155 thou/uL (130-400); RBC Distribution Width 15.2 % (11.5-14.5); Red Blood Cell (RBC) Count 2.08 mill/uL (4.70-6.10)
[2021-03-31 07:08] LABS: ALT (SGPT) 68 U/L (8-55); AST (SGOT) 53 U/L (5-34); Albumin 3.4 g/dL (3.5-5.0); Alkaline Phosphatase 58 U/L (40-110); Anion Gap 9 mmol/L (10-20); BUN (Urea Nitrogen) 12 mg/dL (8.9-20.6); Bilirubin, Total 2.2 mg/dL (0.2-1.2); Calc. Creatinine Clearance 171 mL/min (70-130); Calcium 8.3 mg/dL (7.8-10.44); Carbon Dioxide 27 mmol/L (22-29); Chloride 102 mmol/L (98-107); Globulin 5.9 g/dL (2.4-3.5); Glucose 90 mg/dL (70-105); Potassium 3.8 mmol/L (3.5-5.1); Protein, Total 9.3 g/dL (6.0-8.3); Sodium 134 mmol/L (136-145)
[2021-03-31 07:39] LABS: Band 7 % (5-11); Eosinophils 2 % (0-10); Lymphocytes 20 % (21-51); MDiff Complete? YES; Monocytes 8 % (0-10); Myelocyte 2 % (0-0); Neutrophil 60 % (42-75); Nucleated RBC 12 % (0); Platelet Morphology Comment Appears Adequate; Polychromasia MODERATE = 3-4 cells (100X) (0-2/hpf); Reactive Lymphocytes 1 % (0-10)
[2021-03-31] MEDS: predniSONE 20 MG TAB PO SCH (09:21)
[2021-04-01 04:05] LABS: Hemoglobin 5.6 g/dL (14.0-18.0)
[2021-04-01 04:18] LABS: ALT (SGPT) 79 U/L (8-55); AST (SGOT) 59 U/L (5-34); Albumin 3.5 g/dL (3.5-5.0); Alkaline Phosphatase 58 U/L (40-110); Anion Gap 10 mmol/L (10-20); BUN (Urea Nitrogen) 18 mg/dL (8.9-20.6); Bilirubin, Total 2.9 mg/dL (0.2-1.2); Calc. Creatinine Clearance 173 mL/min (70-130); Calcium 8.5 mg/dL (7.8-10.44); Carbon Dioxide 26 mmol/L (22-29); Chloride 105 mmol/L (98-107); Globulin 5.4 g/dL (2.4-3.5); Glucose 92 mg/dL (70-105); Potassium 4.1 mmol/L (3.5-5.1); Protein, Total 8.9 g/dL (6.0-8.3); Sodium 137 mmol/L (136-145)
[2021-04-01 04:57] LABS: Anisocytosis MODERATE=16-30 cells (100X) (0-5/hpf); Band 8 % (5-11); Lymphocytes 11 % (21-51); MDiff Complete? YES; Mean Corpuscular HGB CONC 38.9 g/dL (32.0-36.0); Mean Corpuscular Hemoglobin 31.9 pg (27.0-31.0); Mean Platelet Volume 8.1 fL (7.4-10.4); Metamyelocyte 1 % (0-0); Monocytes 7 % (0-10); Myelocyte 1 % (0-0); Neutrophil 71 % (42-75); Nucleated RBC 8 % (0); Platelet Count 138 thou/uL (130-400); Platelet Morphology Comment Appears Adequate; Polychromasia MARKED = >4 cells (100X) (0-2/hpf); RBC Distribution Width 15.8 % (11.5-14.5); Reactive Lymphocytes 1 % (0-10); Red Blood Cell (RBC) Count 1.76 mill/uL (4.70-6.10); White Blood Cell (WBC) Count 6.5 thou/uL (4.8-10.8)
[2021-04-01] MEDS: predniSONE 20 MG TAB PO SCH ×2 (09:30→21:26)
[2021-04-01] MEDS ORDERED: OCTAGAM 10% (10 GM/100 ML VIAL) IVPB SCH (10:00)
[2021-04-01] MEDS ORDERED: OCTAGAM 10% 90 GM in Admixture Fee 1 EACH IVPB SCH (11:45)
[2021-04-01] MEDS ORDERED: ADMIXTURE FEE IVPB SCH (12:15)
[2021-04-01] MEDS ORDERED: OCTAGAM IVPB SCH (12:15)
[2021-04-01] MEDS: Acetaminophen 325 MG TAB PO PRN (14:44)
[2021-04-01] MEDS: diphenhydrAMINE 50 MG CAP PO PRN (14:44)
[2021-04-02 04:17] LABS: ALT (SGPT) 116 U/L (8-55); AST (SGOT) 79 U/L (5-34); Albumin 3.5 g/dL (3.5-5.0); Alkaline Phosphatase 60 U/L (40-110); Anion Gap 11 mmol/L (10-20); BUN (Urea Nitrogen) 21 mg/dL (8.9-20.6); Bilirubin, Total 2.8 mg/dL (0.2-1.2); Calc. Creatinine Clearance 165 mL/min (70-130); Calcium 8.6 mg/dL (7.8-10.44); Carbon Dioxide 24 mmol/L (22-29); Chloride 104 mmol/L (98-107); Globulin 6.6 g/dL (2.4-3.5); Glucose 123 mg/dL (70-105); Potassium 4.5 mmol/L (3.5-5.1); Protein, Total 10.1 g/dL (6.0-8.3); Sodium 134 mmol/L (136-145)
[2021-04-02 04:25] LABS: Hemoglobin 6.4 g/dL (14.0-18.0); Mean Corpuscular HGB CONC 35.6 g/dL (32.0-36.0); Mean Corpuscular Hemoglobin 29.7 pg (27.0-31.0); Mean Corpuscular Volume 83.3 fL (78.0-98.0); Mean Platelet Volume 7.7 fL (7.4-10.4); Platelet Count 166 thou/uL (130-400); RBC Distribution Width 16.8 % (11.5-14.5); Red Blood Cell (RBC) Count 2.17 mill/uL (4.70-6.10); White Blood Cell (WBC) Count 8.2 thou/uL (4.8-10.8)
[2021-04-02 04:26] LABS: Band 2 % (5-11); Hypochromia SLIGHT = 6-15 cells (100X) (0-5/hpf); Lymphocytes 18 % (21-51); MDiff Complete? YES; Neutrophil 80 % (42-75); Nucleated RBC 2 % (0); Platelet Morphology Comment Appears Adequate
[2021-04-02] MEDS: predniSONE 20 MG TAB PO SCH ×2 (08:41→20:29)
[2021-04-03 04:52] LABS: Hemoglobin 6.2 g/dL (14.0-18.0); Mean Corpuscular HGB CONC 36.3 g/dL (32.0-36.0); Mean Corpuscular Hemoglobin 30.7 pg (27.0-31.0); Mean Corpuscular Volume 84.4 fL (78.0-98.0); Mean Platelet Volume 7.8 fL (7.4-10.4); Platelet Count 175 thou/uL (130-400); RBC Distribution Width 18.1 % (11.5-14.5); Red Blood Cell (RBC) Count 2.03 mill/uL (4.70-6.10)
[2021-04-03 05:07] LABS: ALT (SGPT) 90 U/L (8-55); AST (SGOT) 50 U/L (5-34); Albumin 3.5 g/dL (3.5-5.0); Alkaline Phosphatase 54 U/L (40-110); Anion Gap 10 mmol/L (10-20); BUN (Urea Nitrogen) 16 mg/dL (8.9-20.6); Bilirubin, Total 2.4 mg/dL (0.2-1.2); Calc. Creatinine Clearance 174 mL/min (70-130); Calcium 8.8 mg/dL (7.8-10.44); Carbon Dioxide 24 mmol/L (22-29); Chloride 103 mmol/L (98-107); Globulin 6.1 g/dL (2.4-3.5); Glucose 142 mg/dL (70-105); Potassium 4.6 mmol/L (3.5-5.1); Protein, Total 9.6 g/dL (6.0-8.3); Sodium 132 mmol/L (136-145)
[2021-04-03 05:13] LABS: Anisocytosis SLIGHT = 6-15 cells (100X) (0-5/hpf); Band 10 % (5-11); Lymphocytes 14 % (21-51); MDiff Complete? YES; Metamyelocyte 1 % (0-0); Monocytes 3 % (0-10); Myelocyte 1 % (0-0); Neutrophil 71 % (42-75); Nucleated RBC 3 % (0); Polychromasia MARKED = >4 cells (100X) (0-2/hpf)
[2021-04-03] MEDS: predniSONE 20 MG TAB PO SCH ×2 (09:08→21:02)
[2021-04-03] MEDS ORDERED: SODIUM CHLORIDE 0.9% IVPB SCH ×2 (12:30→13:30)
[2021-04-03] MEDS ORDERED: RITUXAN IVPB SCH ×2 (12:30→13:30)
[2021-04-03] MEDS ORDERED: diphenhydrAMINE 25 MG in Sodium Chloride 0.9% 50 ML IVPB SCH (12:45)
[2021-04-03] MEDS: Acetaminophen 500 MG TAB PO SCH ×2 (13:40→14:14)
[2021-04-03] MEDS ORDERED: diphenhydrAMINE 50 MG/ML VIAL IVP PRN (13:43)
[2021-04-04 05:06] LABS: Hemoglobin 7.9 g/dL (14.0-18.0); Mean Corpuscular HGB CONC 36.5 g/dL (32.0-36.0); Mean Corpuscular Hemoglobin 31.8 pg (27.0-31.0); Mean Corpuscular Volume 87.1 fL (78.0-98.0); Mean Platelet Volume 8.7 fL (7.4-10.4); Platelet Count 138 thou/uL (130-400); RBC Distribution Width 21.9 % (11.5-14.5); Red Blood Cell (RBC) Count 2.49 mill/uL (4.70-6.10); White Blood Cell (WBC) Count 9.6 thou/uL (4.8-10.8)
[2021-04-04 05:08] LABS: ALT (SGPT) 72 U/L (8-55); AST (SGOT) 39 U/L (5-34); Albumin 3.6 g/dL (3.5-5.0); Alkaline Phosphatase 57 U/L (40-110); Anion Gap 11 mmol/L (10-20); BUN (Urea Nitrogen) 17 mg/dL (8.9-20.6); Bilirubin, Total 2.6 mg/dL (0.2-1.2); Calc. Creatinine Clearance 181 mL/min (70-130); Calcium 8.6 mg/dL (7.8-10.44); Carbon Dioxide 25 mmol/L (22-29); Chloride 104 mmol/L (98-107); Globulin 5.5 g/dL (2.4-3.5); Glucose 131 mg/dL (70-105); Potassium 4.7 mmol/L (3.5-5.1); Protein, Total 9.1 g/dL (6.0-8.3); Sodium 135 mmol/L (136-145)
[2021-04-04 05:57] LABS: Band 8 % (5-11); Lymphocytes 8 % (21-51); MDiff Complete? YES; Metamyelocyte 2 % (0-0); Monocytes 3 % (0-10); Myelocyte 2 % (0-0); Neutrophil 76 % (42-75); Polychromasia MARKED = >4 cells (100X) (0-2/hpf); Reactive Lymphocytes 1 % (0-10)
[2021-04-04] MEDS: predniSONE 20 MG TAB PO SCH ×2 (10:33→20:52)
[2021-04-05 04:53] LABS: ALT (SGPT) 67 U/L (8-55); AST (SGOT) 38 U/L (5-34); Albumin 3.6 g/dL (3.5-5.0); Alkaline Phosphatase 63 U/L (40-110); Anion Gap 9 mmol/L (10-20); BUN (Urea Nitrogen) 19 mg/dL (8.9-20.6); Bilirubin, Total 2.3 mg/dL (0.2-1.2); Calc. Creatinine Clearance 186 mL/min (70-130); Calcium 8.4 mg/dL (7.8-10.44); Carbon Dioxide 24 mmol/L (22-29); Chloride 102 mmol/L (98-107); Glucose 160 mg/dL (70-105); Potassium 4.4 mmol/L (3.5-5.1); Protein, Total 8.6 g/dL (6.0-8.3); Sodium 131 mmol/L (136-145)
[2021-04-05 05:22] LABS: Anisocytosis MODERATE=16-30 cells (100X) (0-5/hpf); Band 4 % (5-11); Lymphocytes 5 % (21-51); MDiff Complete? YES; Metamyelocyte 3 % (0-0); Monocytes 3 % (0-10); Neutrophil 85 % (42-75); Nucleated RBC 11 % (0); Polychromasia MARKED = >4 cells (100X) (0-2/hpf)
[2021-04-05 05:23] LABS: Hemoglobin 7.8 g/dL (14.0-18.0); Mean Corpuscular HGB CONC 37.3 g/dL (32.0-36.0); Mean Corpuscular Hemoglobin 32.7 pg (27.0-31.0); Mean Corpuscular Volume 87.7 fL (78.0-98.0); Mean Platelet Volume 8.7 fL (7.4-10.4); Platelet Count 135 thou/uL (130-400); RBC Distribution Width 20.9 % (11.5-14.5); Red Blood Cell (RBC) Count 2.39 mill/uL (4.70-6.10); White Blood Cell (WBC) Count 7.1 thou/uL (4.8-10.8)
[2021-04-05] MEDS: predniSONE 20 MG TAB PO SCH (09:08)
[2021-04-05 12:40] VITALS: BP 115/73; TEMP 97.2
== END 2021-04-05 11:50 | disposition home or self-care (01) | DRG 809 ==
LOC: ERS 06:33 → ERHOLD 09:01 → 2NO 13:22 → IMCU/EMU 03-29 20:54 → 2NO 04-02 21:24
PROVIDERS: ADMIT Family Medicine; ATTEND Internal Medicine
PROC: 30233N1 Transfusion of Nonautologous Red Blood Cells into Peripheral Vein, Percutaneous Approach (ICD-10-PCS; principal; 2021-03-29)
PROC: 30233S1 Transfusion of Nonautologous Globulin into Peripheral Vein, Percutaneous Approach (ICD-10-PCS; 2021-03-29)
DX: D59.11 Warm autoimmune hemolytic anemia (principal); D61.818 Other pancytopenia; E87.1 Hypo-osmolality and hyponatremia; R74.01 Elevation of levels of liver transaminase levels; R31.9 Hematuria, unspecified; I45.5 Other specified heart block; Z86.16 Personal history of COVID-19
CPT/HCPCS: 36415; 36430; 70450; 76770; 80048; 80053; 81003; 81015; 82274; 82607; 82728; 82746; 83540; 83550; 83615; 84550; 85025; 85046; 85379; 86850; 86870; 86900; 86901; 86922; 93005; 93306; J1200; J1568; J7030; J7512; J9312; P9016

== ENCOUNTER 2021-04-07 10:48 | Day surgery (SDC) | payer OTHER ==
[2021-04-07] MEDS ORDERED: Sodium Chloride 0.9% 20 ML ONE (11:07)
[2021-04-07] MEDS ORDERED: diphenhydrAMINE 25 MG CAP PO SCH (11:15)
[2021-04-07] MEDS ORDERED: Acetaminophen 500 MG TAB PO SCH (11:15)
== END 2021-04-07 11:43 | disposition home or self-care (01) ==
LOC: ONC/OP 10:48
PROVIDERS: ATTEND Internal Medicine Hematology & Oncology
PROC: 30233N1 Transfusion of Nonautologous Red Blood Cells into Peripheral Vein, Percutaneous Approach (ICD-10-PCS; principal; 2021-04-07)
DX: D64.9 Anemia, unspecified (principal); D69.6 Thrombocytopenia, unspecified
CPT/HCPCS: 86850; 86900; 86901; 86922

== ENCOUNTER 2021-04-08 09:01 | Day surgery (SDC) | payer OTHER ==
[2021-04-08] MEDS ORDERED: Sodium Chloride 0.9% 20 ML ONE (09:13)
[2021-04-08] MEDS ORDERED: diphenhydrAMINE 25 MG CAP PO SCH (09:15)
[2021-04-08] MEDS ORDERED: Acetaminophen 500 MG TAB PO SCH (09:15)
[2021-04-08 13:07] VITALS: BP 135/78; TEMP 98.3
== END 2021-04-08 13:07 | disposition home or self-care (01) ==
LOC: ONC/OP 09:01
PROVIDERS: ATTEND Internal Medicine Hematology & Oncology
PROC: 30233N1 Transfusion of Nonautologous Red Blood Cells into Peripheral Vein, Percutaneous Approach (ICD-10-PCS; principal; 2021-04-08)
DX: D64.9 Anemia, unspecified (principal); D69.6 Thrombocytopenia, unspecified
CPT/HCPCS: 36430; 86850; 86900; 86901; 86922; P9016

== ENCOUNTER 2021-04-14 10:18 | Day surgery (SDC) | payer OTHER ==
[2021-04-14] MEDS ORDERED: Sodium Chloride 0.9% 20 ML ONE (10:27)
[2021-04-14] MEDS ORDERED: diphenhydrAMINE 25 MG in Sodium Chloride 0.9% 50 ML IVPB SCH (10:30)
[2021-04-14] MEDS ORDERED: Acetaminophen 500 MG TAB PO SCH (10:30)
[2021-04-14 10:50] VITALS: TEMP 98.8
[2021-04-14] MEDS ORDERED: SODIUM CHLORIDE 0.9% IVPB SCH (11:00)
[2021-04-14] MEDS ORDERED: RITUXIMAB PVVR IVPB SCH (11:00)
[2021-04-14 14:47] VITALS: BP 114/55
== END 2021-04-14 14:17 | disposition home or self-care (01) ==
LOC: ONC/OP 10:18
PROVIDERS: ATTEND Internal Medicine Hematology & Oncology
DX: D59.19 Other autoimmune hemolytic anemia (principal)
CPT/HCPCS: 96375; 96413; 96415; J1200; J7030; Q5115

== ENCOUNTER 2021-04-21 10:34 | Day surgery (SDC) | payer OTHER ==
[2021-04-21] MEDS ORDERED: Sodium Chloride 0.9% 20 ML ONE (10:35)
[2021-04-21] MEDS ORDERED: Acetaminophen 500 MG TAB PO PRN (10:36)
[2021-04-21] MEDS ORDERED: diphenhydrAMINE 25 MG in Sodium Chloride 0.9% 50 ML IVPB PRN (10:36)
[2021-04-21] MEDS ORDERED: SODIUM CHLORIDE 0.9% IVPB SCH (10:45)
[2021-04-21] MEDS ORDERED: RITUXIMAB PVVR IVPB SCH (10:45)
[2021-04-21 11:05] VITALS: TEMP 98.9
[2021-04-21 13:59] VITALS: BP 112/61
== END 2021-04-21 14:20 | disposition home or self-care (01) ==
LOC: ONC/OP 10:34
PROVIDERS: ATTEND Internal Medicine Hematology & Oncology
DX: D59.19 Other autoimmune hemolytic anemia (principal)
CPT/HCPCS: 96375; 96413; 96415; J1200; J7030; Q5119

== ENCOUNTER 2021-04-28 10:10 | Day surgery (SDC) | payer OTHER ==
[~2021-04-28 10:10] MED LIST changes: -Acetaminophen 500 MG TAB PO PRN; +Acetaminophen 500 MG TAB PO SCH; +RITUXIMAB PVVR IVPB SCH; +SODIUM CHLORIDE 0.9% IVPB SCH
[2021-04-28] MEDS ORDERED: Sodium Chloride 0.9% 20 ML ONE (10:14)
[2021-04-28 10:39] VITALS: BP 123/75; TEMP 98.9
== END 2021-04-28 14:28 | disposition home or self-care (01) ==
LOC: ONC/OP 10:10
PROVIDERS: ATTEND Internal Medicine Hematology & Oncology
DX: D59.19 Other autoimmune hemolytic anemia (principal)
CPT/HCPCS: 96375; 96413; 96415; J1200; J7030; Q5119